=== PATIENT | female | born 1975 | race Asian ===

== ENCOUNTER 2021-05-19 09:29 | Outpatient (REF) | payer BC, SELFPAY ==
[2021-05-19 11:31] LABS: MANUAL DIFF FLAG NO
[2021-05-19 11:42] LABS: Basophils Percent Auto 0.4 % (0-2); Eosinophils Absolute Auto 0.2 X10*3/uL (0.0-0.4); Eosinophils Percent Auto 2.1 % (0-4); Hematocrit 39.4 % (37-47); Hemoglobin 12.9 g/dl (12.0-16.0); Imm Gran Abs Auto 0.01 X10*3/uL (0.00-0.03); Imm Gran Pct Auto 0.1 % (0.0-0.4); Lymphocytes Absolute Auto 2.6 X10*3/uL (1.2-4.9); Lymphocytes Percent Auto 36.2 % (20-40); Mean Corpuscular HGB Conc 32.7 g/dl (31.0-35.0); Mean Corpuscular Hemoglobin 29.2 pg (27.0-33.0); Mean Corpuscular Volume 89.1 fL (80-98); Monocytes Absolute Auto 0.4 X10*3/uL (0.1-1.2); Monocytes Percent Auto 6.1 % (2-11); Neutrophils Percent Auto 55.1 % (45-73); Platelet Count 286 X10*3/uL (160-400); Red Blood Count 4.42 X10*6/uL (4.20-5.50); Red Cell Distribution Width 12.7 % (11.0-16.0); White Blood Count 7.2 X10*3/uL (4.8-10.8)
[2021-05-19 12:25] LABS: Vitamin D 25-OH Total 33.2 ng/mL (>30)
[2021-05-19 12:27] LABS: Alanine Aminotransferase 12 U/L (0-31); Albumin Level 4.1 g/dL (3.5-5.0); Alkaline Phosphatase 56 U/L (39-117); Anion Gap 12 (12-20); Aspartate Amino Transferase 22 U/L (5-31); Bilirubin Total 0.4 mg/dL (0.0-1.0); Blood Urea Nitrogen 6 mg/dL (9-16); Carbon Dioxide 24 mmol/L (22-29); Chloride 107 mmol/L (96-108); Cholesterol 166 mg/dL; Estimated Glomerular Filt Rate > 60; Glucose Fasting 93 mg/dL (60-99); HDL Cholesterol 47 mg/dL; LDL Cholesterol Calculated 96 mg/dl; Sodium 139 mmol/L (135-145); Total Protein 7.2 g/dL (6.5-8.0); Triglycerides 117 mg/dL
== END 2021-05-19 09:30 | disposition home or self-care (01) ==
LOC: HO.HMGCLDS 09:29
PROVIDERS: PCP Internal Medicine; Visit Provider Internal Medicine
DX: E55.9 Vitamin D deficiency, unspecified (principal); K21.9 Gastro-esophageal reflux disease without esophagitis
CPT/HCPCS: 36415; 80053; 80061; 82306; 85025

== ENCOUNTER → 2021-12-06 10:11 | Outpatient (BNVA) | payer BC, SELFPAY | PROVIDERS: PCP Internal Medicine; Visit Provider Surgery ==

== ENCOUNTER 2022-01-23 13:57 | Outpatient (REF) | payer BC, SELFPAY ==
[2022-01-23 16:54] LABS: MANUAL DIFF FLAG NO
[2022-01-23 16:58] LABS: Basophils Percent Auto 0.3 % (0-2); Eosinophils Absolute Auto 0.1 X10*3/uL (0.0-0.4); Eosinophils Percent Auto 0.5 % (0-4); Hematocrit 40.2 % (37.0-47.0); Hemoglobin 13.4 g/dl (12.0-16.0); Imm Gran Abs Auto 0.02 X10*3/uL (0.00-0.03); Imm Gran Pct Auto 0.2 % (0.0-0.4); Lymphocytes Absolute Auto 2.7 X10*3/uL (1.2-4.9); Lymphocytes Percent Auto 29.5 % (20-40); Mean Corpuscular HGB Conc 33.3 g/dl (31.0-35.0); Mean Corpuscular Hemoglobin 29.9 pg (27.0-33.0); Mean Corpuscular Volume 89.7 fL (80.0-98.0); Monocytes Absolute Auto 0.5 X10*3/uL (0.1-1.2); Monocytes Percent Auto 5.4 % (2-11); Neutrophils Absolute Auto 5.8 x10*3/uL (2.0-8.3); Neutrophils Percent Auto 64.1 % (45-73); Platelet Count 318 X10*3/uL (160-400); Red Blood Count 4.48 X10*6/uL (4.20-5.50); Red Cell Distribution Width 12.7 % (11.0-16.0); White Blood Count 9.1 X10*3/uL (4.8-10.8)
[2022-01-23 17:15] LABS: Alanine Aminotransferase 15 U/L (0-31); Albumin Level 4.4 g/dL (3.5-5.0); Alkaline Phosphatase 58 U/L (39-117); Anion Gap 13 (12-20); Aspartate Amino Transferase 23 U/L (5-31); Bilirubin Total 0.3 mg/dL (0.0-1.0); Blood Urea Nitrogen 5 mg/dL (9-16); C Reactive Protein 0.38 mg/dL (< or = 0.50); Calcium 9.6 mg/dL (8.4-10.2); Carbon Dioxide 27 mmol/L (22-29); Chloride 104 mmol/L (96-108); Estimated Glomerular Filt Rate > 60; Glucose Random 109 mg/dL (60-115); Potassium 3.8 mmol/L (3.3-5.1); Sodium 140 mmol/L (135-145); Total Protein 7.8 g/dL (6.5-8.0)
[2022-01-23 17:35] LABS: Thyroid Stimulating Hormone 1.21 uIU/mL (0.32-4.0)
== END 2022-01-23 13:58 | disposition home or self-care (01) ==
LOC: HO.HMGCLDS 13:57
PROVIDERS: Visit Provider Internal Medicine
DX: R53.83 Other fatigue (principal)
CPT/HCPCS: 36415; 80053; 84443; 85025; 86140

== ENCOUNTER 2022-07-06 12:24 | Outpatient (REF) | payer BC, SELFPAY ==
[2022-07-06 14:17] LABS: Appearance Urine Clear; Color Urine Yellow; Glucose Urine UA Negative (Negative); Leukocyte Esterase Urine Negative (Negative); Nitrite Urine Negative (Negative); Specific Gravity - Urine <= 1.005 (1.005-1.025); Urine Blood Negative (Negative); Urine Ketones Negative (Negative); Urine Protein Negative (Neg-Trace)
[2022-07-06 14:22] LABS: Bacteria Urine None Seen (None Seen); Hyaline Casts Urine 0-2 /LPF (0-2); RBC Urine 0-2 /HPF (0-2); Squamous Epithelial Cell Urine 0-2 /HPF (0-2); WBC Urine 0-5 /HPF (0-5)
== END 2022-07-06 12:25 | disposition home or self-care (01) ==
LOC: HO.HMGCLDS 12:24
PROVIDERS: PCP Internal Medicine; Visit Provider Internal Medicine
DX: R30.0 Dysuria (principal)
CPT/HCPCS: 81001; 87086

== ENCOUNTER 2022-10-16 07:50 | Outpatient (REF) | payer BC, SELFPAY ==
[2022-10-16 11:28] LABS: MANUAL DIFF FLAG NO
[2022-10-16 11:35] LABS: Basophils Percent Auto 0.4 % (0-2); Eosinophils Absolute Auto 0.1 X10*3/uL (0.0-0.4); Hematocrit 38.9 % (37.0-47.0); Hemoglobin 12.9 g/dl (12.0-16.0); Imm Gran Abs Auto 0.02 X10*3/uL (0.00-0.03); Imm Gran Pct Auto 0.2 % (0.0-0.4); Lymphocytes Absolute Auto 2.8 X10*3/uL (1.2-4.9); Lymphocytes Percent Auto 33.5 % (20-40); Mean Corpuscular HGB Conc 33.2 g/dl (31.0-35.0); Mean Corpuscular Hemoglobin 29.5 pg (27.0-33.0); Mean Corpuscular Volume 88.8 fL (80.0-98.0); Mean Platelet Volume 10.1 fL (9.4-12.3); Monocytes Absolute Auto 0.5 X10*3/uL (0.1-1.2); Monocytes Percent Auto 5.9 % (2-11); Neutrophils Absolute Auto 4.9 x10*3/uL (2.0-8.3); Platelet Count 305 X10*3/uL (160-400); Red Blood Count 4.38 X10*6/uL (4.20-5.50); Red Cell Distribution Width 12.3 % (11.0-16.0); White Blood Count 8.3 X10*3/uL (4.8-10.8)
[2022-10-16 14:10] LABS: Alanine Aminotransferase 14 U/L (0-31); Albumin Level 4.2 g/dL (3.5-5.0); Alkaline Phosphatase 58 U/L (39-117); Anion Gap 14 (12-20); Aspartate Amino Transferase 21 U/L (5-31); Bilirubin Total 0.5 mg/dL (0.0-1.0); Blood Urea Nitrogen 8 mg/dL (9-16); Calcium 8.9 mg/dL (8.4-10.2); Carbon Dioxide 24 mmol/L (22-29); Chloride 106 mmol/L (96-108); Cholesterol 152 mg/dL; Estimated Glomerular Filt Rate > 60; Glucose Random 93 mg/dL (60-115); HDL Cholesterol 44 mg/dL; LDL Cholesterol Calculated 85 mg/dl; Potassium 4.1 mmol/L (3.3-5.1); Sodium 140 mmol/L (135-145); Thyroid Stimulating Hormone 1.42 uIU/mL (0.32-4.0); Total Protein 7.2 g/dL (6.5-8.0); Triglycerides 115 mg/dL; Vitamin D 25-OH Total 39.6 ng/mL (>30)
== END 2022-10-16 07:51 | disposition home or self-care (01) ==
LOC: HO.HMGCLDS 07:50
PROVIDERS: PCP Internal Medicine; Visit Provider Internal Medicine
DX: Z00.00 Encounter for general adult medical examination without abnormal findings (principal); E55.9 Vitamin D deficiency, unspecified; K21.9 Gastro-esophageal reflux disease without esophagitis
CPT/HCPCS: 36415; 80053; 80061; 82306; 84443; 85025

== ENCOUNTER 2023-09-03 08:01 | Outpatient (REF) | payer BC, SELFPAY ==
[2023-09-03 11:23] LABS: MANUAL DIFF FLAG NO
[2023-09-03 11:30] LABS: Basophils Percent Auto 0.5 % (0-2); Eosinophils Absolute Auto 0.2 X10*3/uL (0.0-0.4); Hemoglobin 12.8 g/dl (12.0-16.0); Imm Gran Abs Auto 0.03 X10*3/uL (0.00-0.03); Imm Gran Pct Auto 0.4 % (0.0-0.4); Lymphocytes Absolute Auto 3.2 X10*3/uL (1.2-4.9); Lymphocytes Percent Auto 40.2 % (20-40); Mean Corpuscular HGB Conc 32.8 g/dl (31.0-35.0); Mean Corpuscular Hemoglobin 29.4 pg (27.0-33.0); Mean Corpuscular Volume 89.7 fL (80.0-98.0); Mean Platelet Volume 10.2 fL (9.4-12.3); Monocytes Absolute Auto 0.5 X10*3/uL (0.1-1.2); Monocytes Percent Auto 6.7 % (2-11); Neutrophils Absolute Auto 3.9 x10*3/uL (2.0-8.3); Neutrophils Percent Auto 50.2 % (45-73); Platelet Count 307 X10*3/uL (160-400); Red Blood Count 4.35 X10*6/uL (4.20-5.50); Red Cell Distribution Width 13.5 % (11.0-16.0); White Blood Count 7.9 X10*3/uL (4.8-10.8)
[2023-09-03 12:03] LABS: Alanine Aminotransferase 18 U/L (0-31); Albumin Level 4.3 g/dL (3.5-5.0); Alkaline Phosphatase 64 U/L (39-117); Anion Gap 13 (12-20); Aspartate Amino Transferase 26 U/L (5-31); Bilirubin Total 0.4 mg/dL (0.0-1.0); Blood Urea Nitrogen 6 mg/dL (9-16); Calcium 9.3 mg/dL (8.4-10.2); Carbon Dioxide 26 mmol/L (22-29); Chloride 104 mmol/L (96-108); Cholesterol 157 mg/dL (<200); Estimated Glomerular Filt Rate > 60; Glucose Fasting 94 mg/dL (60-99); HDL Cholesterol 49 mg/dL (>40); Iron 67 mcg/dL (30-160); LDL Cholesterol Calculated 90 mg/dL (<100); Percent Iron Saturation 21 % (15-50); Sodium 139 mmol/L (135-145); Total Iron Binding Capacity 322 mcg/dL (228-428); Triglycerides 94 mg/dL (<150); Unsaturated Iron Binding 255 ug/dL
[2023-09-03 12:06] LABS: Ferritin 20 ng/mL (10-250); Thyroid Stimulating Hormone 1.36 uIU/mL (0.32-4.0)
[2023-09-03 12:22] LABS: Folate 13.4 ng/mL (> or = 4.0); Vitamin B12 1066 pg/mL (200-900)
== END 2023-09-03 08:02 | disposition home or self-care (01) ==
LOC: HO.HMGCLDS 08:01
PROVIDERS: PCP Internal Medicine; Visit Provider Internal Medicine
DX: E55.9 Vitamin D deficiency, unspecified (principal); K21.9 Gastro-esophageal reflux disease without esophagitis; N92.0 Excessive and frequent menstruation with regular cycle
CPT/HCPCS: 36415; 80053; 80061; 82306; 82607; 82728; 82746; 83540; 84443; 85025

== ENCOUNTER 2023-10-24 11:57 | Outpatient (REF) | payer BC, SELFPAY ==
[2023-10-24 13:35] LABS: MANUAL DIFF FLAG NO
[2023-10-24 13:44] LABS: Basophils Percent Auto 0.4 % (0-2); Eosinophils Absolute Auto 0.1 X10*3/uL (0.0-0.4); Eosinophils Percent Auto 1.5 % (0-4); Hematocrit 39.1 % (37.0-47.0); Hemoglobin 12.8 g/dl (12.0-16.0); Imm Gran Abs Auto 0.02 X10*3/uL (0.00-0.03); Imm Gran Pct Auto 0.2 % (0.0-0.4); Lymphocytes Absolute Auto 3.2 X10*3/uL (1.2-4.9); Lymphocytes Percent Auto 38.6 % (20-40); Mean Corpuscular HGB Conc 32.7 g/dl (31.0-35.0); Mean Corpuscular Hemoglobin 29.5 pg (27.0-33.0); Mean Corpuscular Volume 90.1 fL (80.0-98.0); Mean Platelet Volume 10.2 fL (9.4-12.3); Monocytes Absolute Auto 0.5 X10*3/uL (0.1-1.2); Monocytes Percent Auto 6.2 % (2-11); Neutrophils Absolute Auto 4.4 x10*3/uL (2.0-8.3); Neutrophils Percent Auto 53.1 % (45-73); Platelet Count 267 X10*3/uL (160-400); Red Blood Count 4.34 X10*6/uL (4.20-5.50); Red Cell Distribution Width 12.8 % (11.0-16.0); White Blood Count 8.2 X10*3/uL (4.8-10.8)
[2023-10-24 14:26] LABS: Iron 68 mcg/dL (30-160); Percent Iron Saturation 23 % (15-50); Total Iron Binding Capacity 300 mcg/dL (228-428); Unsaturated Iron Binding 232 ug/dL
[2023-10-24 14:28] LABS: Ferritin 22 ng/mL (10-250)
== END 2023-10-24 11:58 | disposition home or self-care (01) ==
LOC: HO.HMGCLDS 11:57
PROVIDERS: PCP Internal Medicine; Visit Provider Internal Medicine
DX: N92.1 Excessive and frequent menstruation with irregular cycle (principal)
CPT/HCPCS: 36415; 82728; 83540; 85025

== ENCOUNTER 2024-04-24 07:54 | Outpatient (REF) | payer BC, SELFPAY ==
[2024-04-24 11:19] LABS: MANUAL DIFF FLAG NO
[2024-04-24 11:22] LABS: Basophils Percent Auto 0.6 % (0-2); Eosinophils Absolute Auto 0.2 X10*3/uL (0.0-0.4); Eosinophils Percent Auto 2.4 % (0-4); Hematocrit 40.5 % (37.0-47.0); Hemoglobin 13.5 g/dl (12.0-16.0); Imm Gran Abs Auto 0.02 X10*3/uL (0.00-0.03); Imm Gran Pct Auto 0.3 % (0.0-0.4); Lymphocytes Percent Auto 42.1 % (20-40); Mean Corpuscular HGB Conc 33.3 g/dl (31.0-35.0); Mean Platelet Volume 9.9 fL (9.4-12.3); Monocytes Absolute Auto 0.5 X10*3/uL (0.1-1.2); Monocytes Percent Auto 6.9 % (2-11); Neutrophils Absolute Auto 3.5 x10*3/uL (2.0-8.3); Neutrophils Percent Auto 47.7 % (45-73); Platelet Count 274 X10*3/uL (160-400); Red Cell Distribution Width 12.6 % (11.0-16.0); White Blood Count 7.2 X10*3/uL (4.8-10.8)
[2024-04-24 11:45] LABS: Alanine Aminotransferase 27 U/L (0-31); Albumin Level 4.3 g/dL (3.5-5.0); Alkaline Phosphatase 63 U/L (39-117); Anion Gap 11 (12-20); Aspartate Amino Transferase 31 U/L (5-31); Bilirubin Total 0.5 mg/dL (0.0-1.0); Blood Urea Nitrogen 9 mg/dL (9-16); Calcium 9.5 mg/dL (8.4-10.2); Carbon Dioxide 28 mmol/L (22-29); Chloride 106 mmol/L (96-108); Cholesterol 163 mg/dL (<200); Estimated Glomerular Filt Rate > 60; Glucose Fasting 88 mg/dL (60-99); HDL Cholesterol 59 mg/dL (>40); Iron 102 mcg/dL (30-160); LDL Cholesterol Calculated 91 mg/dL (<100); Percent Iron Saturation 34 % (15-50); Potassium 3.9 mmol/L (3.3-5.1); Sodium 141 mmol/L (135-145); Total Iron Binding Capacity 302 mcg/dL (228-428); Total Protein 7.9 g/dL (6.5-8.0); Triglycerides 68 mg/dL (<150); Unsaturated Iron Binding 200 ug/dL
[2024-04-24 12:04] LABS: Ferritin 46 ng/mL (10-250); Thyroid Stimulating Hormone 1.79 uIU/mL (0.32-4.0); Vitamin D 25-OH Total 57.1 ng/mL (>30)
[2024-04-24 12:05] LABS: Folate 14.4 ng/mL (> or = 4.0); Vitamin B12 761 pg/mL (200-900)
== END 2024-04-24 07:55 | disposition home or self-care (01) ==
LOC: HO.HMGCLDS 07:54
PROVIDERS: PCP Internal Medicine; Visit Provider Internal Medicine
DX: E55.9 Vitamin D deficiency, unspecified (principal); K21.9 Gastro-esophageal reflux disease without esophagitis; N92.1 Excessive and frequent menstruation with irregular cycle
CPT/HCPCS: 36415; 80053; 80061; 82306; 82607; 82728; 82746; 83540; 84443; 85025

== ENCOUNTER 2024-10-12 09:48 | Outpatient (REF) | payer BC, SELFPAY ==
--- OUTSIDE RECORDS SUMMARY | 2024-10-12 09:52 | XMS_ITS | Patient Health Record ---
Author Organization [facility] Address [address] [place] [address] Care Team Providers Care Supervisor Electronics Assembly Name Role Phone Alexandre Salmeron DO Primary Care Provider Unavail able Alexandre Barrera Unavailable [phone] REASON FOR REFERRAL Referring Provider First Name Alexandre Referring Provider Last Name Freddy Referring Provider Speciality Internal M edicine Referred Organization [facility] Referred Provider Alexandre Barrera Referred Address [address] [facility] [address],[place], [place],[address], Referred Provider Specialty Gastroentero logy General Notes Kerrie Hernandez 024 03:54:35 PM EST > REQUESTED AN HMO BLUE REFERRAL FROM DR SALMERON'S OFFICE FOR VISIT WITH DR BARRERA ON [phone] Referral Priority Routine SOCIAL HISTORY Sex Assigned At : Social History Observation Description Sex Assigned At Unknown Encounters Encounter Location Date Provider Diagnosis [facility] [address] [place] [address] 01/15/2024 Alexandre Barrera [facility] [address] [place] [address] 01/13/2024 Alexandre Barrera PLAN OF TREATMENT No Information Insurance Providers Payer Name Payer Address Payer Phone Subscriber Number Group Number Insured Name Patient Relationship to Insured Coverage Start Date Coverage End Date HMO BLUE BCBS PROFESSIONAL CLAIMS [address] [place] [address] [phone] [id number] [id number] ABEBE Self - patient is the insured
--- OUTSIDE RECORDS SUMMARY | 2024-10-12 09:52 | XMS_ITS ---
Author Organization [facility] Address [address] [place] [address] Care Team Providers Care Worship Pastor Name Role Phone Alexandre Hayes DO Primary Care Provider Unavail able Alexandre Arambula Unavailable [phone] REASON FOR VISIT cancel OV Encounters Encounter Location Date Provider Diagnosis [facility] [address] [place] [address] 01/13/2024 Alexandre Arambula PLAN OF TREATMENT No Information
--- OUTSIDE RECORDS SUMMARY | 2024-10-12 09:52 | XMS_ITS ---
Author Organization Alexandre Hayes DO [facility] Address [address] [place], [place] [id number] Care Team Providers Care Vtc Technician Name Role Phone Freddy, Alexandre Primary Care Provider REASON FOR VISIT Message Encounters Encounter Location Date Provider Diagnosis Alexandre Hayes DO, [address] [id number] 09/30/2024 Alexandre Hayes Malodorous urine R82.90 ASSESSMENTS Encounter Date Diagnosis Assessment Notes Treatment Notes Treatment Clinical Notes 09/30/2024 Malodorous urine (ICD-10 - R82.90) PLAN OF TREATMENT Pending Test Test Name Order Date Urinalysis and Microscopic 09/30/2024 Urine Culture 09/30/2024 Next Appt Details Provider Name:Alexandre stevens, 10/13/2024 01:45:00 PM, [address] [place] [address], [phone], Provider Name:Alexandre stevens, 11/03/2024 09:00:00 AM, [address] [place] [address], [phone],
--- OUTSIDE RECORDS SUMMARY | 2024-10-12 09:52 | XMS_ITS ---
Author Organization [facility] Address [address] [place] [address] Care Team Providers Care Antenna Specialist Name Role Phone Alexandre Hayes DO Primary Care Provider Unavail able Alexandre Arambula Unavailable [phone] REASON FOR VISIT Patient presents today for a COLON SCREENING Encounters Encounter Location Date Provider Diagnosis [facility] [address] [place] [address] 01/15/2024 Alexandre Arambula PLAN OF TREATMENT No Information
--- OUTSIDE RECORDS SUMMARY | 2024-10-12 09:52 | XMS_ITS ---
Author Organization Alexandre Hayes DO [facility] Address [address] [place] [phone] Care Team Providers Care Scraper Meat Name Role Phone Alexandre Hayes Primary Care Provider REASON FOR VISIT Needs call back from office PROBLEMS Problem Type ICD Code Onset Dates Problem Status W/U Status Risk SNOMED Code Notes Problem Chronic fatigue (R53.82) Active confirmed 30711539 Encounters Encounter Location Date Provider Diagnosis Alexandre Hayes DO, [address] [id number] 07/24/2024 Alexandre Freddy Chronic fatigue R53.82 ASSESSMENTS Encounter Date Diagnosis Assessment Notes Treatment Notes Treatment Clinical Notes 07/24/2024 Chronic fatigue (ICD-10 - R53.82) PLAN OF TREATMENT Pending Test Test Name Order Date Sedimentation Rate-Westergren 07/24/2024 CBC w DIFF 07/24/2024 PROFILE, RANDOM 07/24/2024 TSH (THYROID STIMULATING HORMONE) 2023 Urinalysis and Microscopic 07/24/2024 C Reactive Protein 07/24/2024 Next Appt Details Provider Name:Alexandre Carrasquillo Miriam stevens, 10/13/2024 01:45:00 PM, [address] [place] [address], [phone], Provider Name:Alexandre Pineda hilda, 11/03/2024 09:00:00 AM, [address] [place] [address], [phone],
--- OUTSIDE RECORDS SUMMARY | 2024-10-12 09:52 | XMS_ITS ---
Author Organization Alexandre Hayes DO, [facility] Address [address] [place] [phone] Care Team Providers Care Cognos Consultant Name Role Phone Alexandre Hayes Primary Care Provider REASON FOR VISIT Message Encounters Encounter Location Date Provider Diagnosis Alexandre Hayes DO, FACP [address] [place] [phone] 08/17/2024 Alexandre Hayes PLAN OF TREATMENT Next Appt Details Provider Name:Alexandre stevens, 10/13/2024 01:45:00 PM, [address] [place] [address], [phone], Provider Name:Alexandre stevens, 11/03/2024 09:00:00 AM, [address] [place] [address], [phone],
--- OUTSIDE RECORDS SUMMARY | 2024-10-12 09:53 | XMS_ITS | Patient Health Record ---
Author Organization Alexandre Hayes DO, FACP Address [address] [place], [place] [phone] Care Team Providers Care Metal Window Screen Assembler Name Role Phone Alexandre Hayes Primary Care Provider ALLERGIES Allergen (clinical drug ingredient) Drug/Non Drug Allergy documented on EMR Reaction Allergy Type Onset Date Status amoxicillin Amoxicillin rash Drug Allergy Act loree RESULTS Component Value Reference Range Notes Complete Blood Count Auto Di ff Reviewed date:10/24/2023 02:57:37 PM Interpretation:Normal Performing Lab:[facility], [address] [place] [phone] Notes/Report: White Blood Count 8.2 4.8-10.8 X10*3/uL Red Blood Count 4.34 4.20-5.50 X10*6/uL Hemoglobin 12.8 12.0-16.0 g/dl Hematocrit 39.1 37.0-47.0 % Mean Corpuscular Volume 90.1 80.0-98.0 fL Mean Corpuscular Hemoglobin 29.5 27.0-33.0 pg Mean Corpuscular HGB Conc 32.7 31.0-35.0 g/dl Red Cell Distribution Width 12.8 11.0-16.0 % Platelet Count 267 160-400 X10*3/uL Mean Platelet Volume 10.2 9.4-12.3 fL Neutrophils Percent Auto 53.1 45-73 % Imm Gran Pct Auto 0.2 0.0-0.4 % Lymphocytes Percent Auto 38.6 20-40 % Monocytes Percent Auto 6.2 2-11 % Eosinophils Percent Auto 1.5 0-4 % Basophils Percent Auto 0.4 0-2 % NRBC Pct Auto 0.0 0.0-0.2 /100WBC Neutrophils Absolute Auto 4.4 2.0-8.3 x10*3/u L Imm Gran Abs Auto 0.02 0.00-0.03 X10*3/uL Lymphocytes Absolute Auto 3.2 1.2-4.9 X10*3/u L Monocytes Absolute Auto 0.5 0.1-1.2 X10*3/uL Eosinophils Absolute Auto 0.1 0.0-0.4 X10*3/u L Basophils Absolute Auto 0.0 0.0-0.2 X10*3/uL NRBC Abs Auto 0.000 0.0-0.012 X10*3/uL IRON PROFILE Reviewed date:10/24/2023 02:57:37 PM Interpretation:Normal Performing Lab:[facility], [address] [place] [phone] Notes/Report: Iron 68 30-160 mcg/dL Total Iron Binding Capacity 300 228-428 mcg/d L Percent Iron Saturation 23 15-50 % Unsaturated Iron Binding 232 Ferritin Reviewed date:10/24/2023 02:57:51 PM Interpretation:Normal Performing Lab:[facility], [address] [place] [phone] Notes/Report: Ferritin 22 10-250 ng/mL Complete Blood Count Auto Di ff Reviewed date:04/24/2024 12:49:33 PM Interpretation:Normal Performing Lab:[facility], [address] [place] [phone] Notes/Report: White Blood Count 7.2 4.8-10.8 X10*3/uL Red Blood Count 4.50 4.20-5.50 X10*6/uL Hemoglobin 13.5 12.0-16.0 g/dl Hematocrit 40.5 37.0-47.0 % Mean Corpuscular Volume 90.0 80.0-98.0 fL Mean Corpuscular Hemoglobin 30.0 27.0-33.0 pg Mean Corpuscular HGB Conc 33.3 31.0-35.0 g/dl Red Cell Distribution Width 12.6 11.0-16.0 % Platelet Count 274 160-400 X10*3/uL Mean Platelet Volume 9.9 9.4-12.3 fL Neutrophils Percent Auto 47.7 45-73 % Imm Gran Pct Auto 0.3 0.0-0.4 % Lymphocytes Percent Auto 42.1 20-40 % Monocytes Percent Auto 6.9 2-11 % Eosinophils Percent Auto 2.4 0-4 % Basophils Percent Auto 0.6 0-2 % NRBC Pct Auto 0.0 0.0-0.2 /100WBC Neutrophils Absolute Auto 3.5 2.0-8.3 x10*3/u L Imm Gran Abs Auto 0.02 0.00-0.03 X10*3/uL Lymphocytes Absolute Auto 3.0 1.2-4.9 X10*3/u L Monocytes Absolute Auto 0.5 0.1-1.2 X10*3/uL Eosinophils Absolute Auto 0.2 0.0-0.4 X10*3/u L Basophils Absolute Auto 0.0 0.0-0.2 X10*3/uL NRBC Abs Auto 0.000 0.0-0.012 X10*3/uL Comprehensive [place]. Panel Fa st Reviewed date:04/24/2024 12:49:33 PM Interpretation:Normal Performing Lab:[facility], [address] [place] [phone] Notes/Report: Sodium 141 135-145 mmol/L Potassium 3.9 3.3-5.1 mmol/L Chloride 106 96-108 mmol/L Carbon Dioxide 28 22-29 mmol/L Anion Gap 11 12-20 Blood Urea Nitrogen 9 9-16 mg/dL Creatinine 0.68 0.5-1.4 mg/dL Estimated Glomerular Filt Rate > 60 NOTE: For -[place] individuals, multiply the result by 1.210. Chronic Kidney Disease: Estimated GFR < 60 mL/min/1.73m2 Severe Kidney Disease: Estimated GFR < 15 mL/min/1.73m2 Glucose Fasting 88 60-99 mg/dL Calcium 9.5 8.4-10.2 mg/dL Bilirubin Total 0.5 0.0-1.0 mg/dL Aspartate Amino Transferase 31 5-31 U/L Alanine Aminotransferase 27 0-31 U/L Total Protein 7.9 6.5-8.0 g/dL Albumin Level 4.3 3.5-5.0 g/dL Alkaline Phosphatase 63 39-117 U/L IRON PROFILE Reviewed date:04/24/2024 12:49:33 PM Interpretation:Normal Performing Lab:[facility], [address] [place] [phone] Notes/Report: Iron 102 30-160 mcg/dL Total Iron Binding Capacity 302 228-428 mcg/d L Percent Iron Saturation 34 15-50 % Unsaturated Iron Binding 200 Ferritin Reviewed date:04/24/2024 12:49:33 PM Interpretation:Normal Performing Lab:[facility], [address] [place] [phone] Notes/Report: Ferritin 46 10-250 ng/mL Lipid Panel Reviewed date:04/24/2024 12:49:33 PM Interpretation:Normal Performing Lab:[facility], [address] [place] [phone] Notes/Report: Triglycerides 68 <150 mg/dL Desirable Triglyceride: less than 150 mg/dL Borderline High Triglyceride 150-199 mg/dL High Triglyceride: 200-499 mg/dL Very High Triglyceride: greater than or equal to 5OO mg/dL Cholesterol 163 <200 mg/dL Desirable Cholesterol: less than 200 mg/dL Borderline High Cholesterol: 200-239 mg/dL High Cholesterol: greater than 239 mg/dL LDL Cholesterol Calculated 91 <100 mg/dL Desirable LDL: less than 100 mg/dL Near Optimal/Above Optimal LDL: 110-129 mg/dL Borderline High LDL: 130-159 mg/dL High LDL: 160-189 mg/dL Very High LDL: greater than or equal to 190 mg/dL HDL Cholesterol 59 >40 mg/dL Desirable HDL: greater than 40 mg/dL Note: This HDL assay may give artificially low results in patients with liver disease. Vitamin B12 and Folate Reviewed date:04/24/2024 12:49:48 PM Interpretation:Normal Performing Lab:[facility], [address] [place] [phone] Notes/Report: Vitamin B12 761 200-900 pg/mL NORMAL 200-900 PG/ML INDETERMINATE 160-199 PG/ML DEFICIENT < 160 PG/ML Folate 14.4 > or = 4.0 ng/mL Reference Values: > or = 4.0 ng/mL < 4.0 ng/mL suggests folate deficiency Methotrexate, aminopterin and folinic acid (leucovorin) are chemotherapeutic agents whose molecular structures are similar to folate; therefore, the Binder Fixer folate assay cannot be used for patients using these drugs. Vitamin D 25-OH Total Reviewed date:04/24/2024 12:49:33 PM Interpretation:Normal Performing Lab:[facility], [address] [place] [phone] Notes/Report: Vitamin D 25-OH Total 57.1 >30 ng/mL Health Based Reference Values* < 20 ng/mL Deficient 20-30 ng/mL Insufficient > 30 ng/mL Sufficient *Tricia DEUTSCH. N Engl J Med. 2007;357:266-280 Care must be taken in interpreting Vitamin D results from different laboratories and methodologies. Published data demonstrated that results from patients undergoing hemodialysis may show a negative bias when tested with various automated 25-OH vitamin D assays when compared to LC-MS/MS. When testing samples from patients whose predominant form of Vitamin D is Vitamin D2, such as patients receiving Vitamin D2 supplementation, results that are subtherapeutic should be confirmed with another method such as LC-MS/MS. Thyroid Stimulating Hormone Reviewed date:04/24/2024 12:49:33 PM Interpretation:Normal Performing Lab:[facility], [address] [place] [phone] Notes/Report: Thyroid Stimulating Hormone 1.79 0.32-4.0 uIU/ mL TSH 3rd Generation ([facility]) MAMMOGRAM, SCREENING Reviewed date:05/05/2024 02:57:36 PM Interpretation:Benign Performing Lab: Notes/Report: Benign REASON FOR REFERRAL Reason colon cancer screeni ng Diagnosis 1 Colon cancer screeni ng (Z12.11) Referral Organization Alexandre Nicole, FACBrennan Referring Provider First Name Alexandre Referring Provider Last Name Freddy Referring Provider Speciality Internal M edicine Referred Provider Evans Engel Referred Provider Specialty Gastroentero logy General Notes Brittnee Torres 4 12:00:03 PM EST > Referral and notes faxed prior to scheduling to [phone]. Referral Priority Routine MEDICATIONS Medication SIG (Take, Route, Frequency, Duration) Notes Start Date End Date Status Krill Oil [place]-3 500 MG 1 capsule Orall y Once every other day Active Multivitamin - 1 tablet Orally Once a day Active Vitamin D (Cholecalciferol) 25 MCG (1000 UT) 1 capsule Orally Once a day Active IMMUNIZATIONS Vaccine Route Administration Date Status Comme nts H1N1 Unknown 11/03/2009 Administered Influenza Unknown 07/28/2010 Administered Influenza IM Intramuscular 08/03/2014 Administered Influenza Quad IM Intramuscular 08/01/2015 Administered Influenza Quad IM Intramuscular 08/03/2016 Administered Influenza Quad IM Intramuscular 08/20/2017 Administered Influenza Quad IM Intramuscular 08/12/2018 Administered Influenza Quad IM Intramuscular 08/19/2019 Administered Influenza Quad Unknown 08/10/2020 Administered COVID-19 Pfizer BioNTech Unknown 09/24/2021 Administere d Influenza Quad Unknown 08/16/2021 Administered COVID-19 Pfizer BioNTech Unknown 02/22/2021 Administere d COVID-19 Pfizer BioNTech Unknown 02/01/2021 Administere d Influenza Quad Unknown 08/01/2022 Administered Influenza Quad Unknown 08/01/2023 Administered SOCIAL HISTORY Tobacco Use: Social History Observation Description Date Details (start date - stop date) Never Smoker NA - NA Sex Assigned At : Social History Observation Description Sex Assigned At Unknown Tobacco Use/Smoking Question Answer Notes Patient is a nonsmoker Additional Findings: Tobacco Non-User Cu rrent non-smoker, currently using no form of tobacco Alcohol Screen Question Answer Notes Did you have a drink containing alcohol in the p ast year? No Points 0 Interpretation Negative PROBLEMS Problem Type ICD Code Onset Dates Problem Status W/U Status Risk SNOMED Code Notes Problem Vitamin D deficiency (E55.9) Active confirmed 65058672 Problem Anxiety (F41.9) Active confirmed 290076 02 Problem Chronic fatigue (R53.82) Active confirmed 85275616 Problem Cervical strain, initial encounter (S16.1XXA) Active confirmed 559852795 Problem Vertigo (R42) Active confirmed 11552897 1 Problem Fibrocystic breast disease, right (N60.11) Active confirmed 46401282 Problem Blurred vision (H53.8) Active confirmed 465752090 Problem Eustachian tube dysfunction, bilateral (H69.83) Active confirmed 37994124 Problem Gastroesophageal reflux disease, unspecified whether esophagitis present (K21.9) Active confirmed 429803813 Problem Menometrorrhagia (N92.1) Active confirmed 343441943 VITAL SIGNS Blood pressure diastolic 64 mm Hg 04/29/2024 Height 59.00 in 04/29/2024 Blood pressure systolic 112 mm Hg 04/29/2024 Weight 139 lbs 04/29/2024 BMI 28.07 kg/m2 04/29/2024 Encounters Encounter Location Date Provider Diagnosis Alexandre Hayes DO, [address] [id number] 10/23/2023 Alexandre Hayes DO, [address] [id number] 10/30/2023 Alexandre Hayes Encounter for genera l adult medical examination without abnormal findings Z00.00 ; Vitamin D deficiency E55.9 and Menometrorrhagia N92.1 Alexandre Hayes DO, [address] [id number] 04/29/2024 Alexandre Hayes Vitamin D deficiency E55.9 Alexandre Hayes DO, [address] [id number] 03/18/2024 Alexandre Hayes Vitamin D deficiency E55.9 ; Gastroesophageal reflux disease, unspecified whether esophagitis present K21.9 and Menometrorrhagia N92.1 Alexandre Hayes DO, [address] [id number] 06/08/2024 Alexandre Hayes DO, [address] [id number] 07/24/2024 Alexandre Hayes Chronic fatigue R53. 82 Alexandre Hayes DO, [address] [id number] 08/17/2024 Alexandre Hayes DO, [address] [id number] 09/30/2024 Alexandre Hayes Malodorous urine R82 .90 ASSESSMENTS Encounter Date Diagnosis Assessment Notes Treatment Notes Treatment Clinical Notes 10/30/2023 Vitamin D deficiency (ICD-10 - E55.9) 10/30/2023 Encounter for genera l adult medical examination without abnormal findings (ICD-10 - Z00.00) sees Dermatology 04/29/2024 Vitamin D deficiency (ICD-10 - E55.9) 03/18/2024 Vitamin D deficiency (ICD-10 - E55.9) 03/18/2024 Gastroesophageal reflux disease, unspecified whether esophagitis present (ICD-10 - K21.9) 07/24/2024 Chronic fatigue (ICD-10 - R53.82) 09/30/2024 Malodorous urine (ICD-10 - R82.90) 10/30/2023 Menometrorrhagia (ICD-10 - N92.1) 03/18/2024 Menometrorrhagia (ICD-10 - N92.1) PLAN OF TREATMENT Pending Test Test Name Order Date Sedimentation Rate-Westergren 07/24/2024 CBC w DIFF 07/24/2024 PROFILE, RANDOM 07/24/2024 TSH (THYROID STIMULATING HORMONE) 2023 COLOGUARD 07/02/2023 Urinalysis and Microscopic 07/24/2024 Urinalysis and Microscopic 09/30/2024 C Reactive Protein 07/24/2024 Urine Culture 09/30/2024 Next Appt Details Provider Name:Alexandre Pineda hilda, 10/13/2024 01:45:00 PM, [address] [place] [address], [phone], Provider Name:Alexandre Pineda hilda, 11/03/2024 09:00:00 AM, [address] [place] [address], [phone], Insurance Providers Payer Name Payer Address Payer Phone Subscriber Number Group Number Insured Name Patient Relationship to Insured Coverage Start Date Coverage End Date [facility] [address] [place], [place] [id number] [phone] [id number] Hector Unger Self - patient is the insured MEDICAL (GENERAL) HISTORY Medical History History ICD Code Vitamin D deficiency 268.9 Onychomycosis 110.1 seasonal allergies External hemorrhoid Abnormal mammogram fibrocystic breast disease Anxiety F41.9 Heartburn R12 Gastroesophageal reflux disease, unspeci fied whether esophagitis present K21.9 Surgical History Surgery Date(Month/Year) breast biopsy, right, fibroadenoma 11/16 16
[2024-10-12 13:21] LABS: Appearance Urine Clear; Color Urine Yellow; Glucose Urine UA Negative (Negative); Leukocyte Esterase Urine Negative (Negative); Nitrite Urine Negative (Negative); PH 7.5 (5.0-9.0); Specific Gravity - Urine <= 1.005 (1.005-1.025); Urine Blood Negative (Negative); Urine Ketones Negative (Negative); Urine Protein Negative (Neg-Trace)
[2024-10-12 13:26] LABS: Bacteria Urine None Seen (None Seen); Hyaline Casts Urine 0-2 /LPF (0-2); RBC Urine 0-2 /HPF (0-2); Squamous Epithelial Cell Urine 0-2 /HPF (0-2); WBC Urine 0-5 /HPF (0-5)
[2024-10-12 13:34] LABS: MANUAL DIFF FLAG NO
[2024-10-12 13:46] LABS: Basophils Percent Auto 0.5 % (0-2); Eosinophils Absolute Auto 0.1 X10*3/uL (0.0-0.4); Eosinophils Percent Auto 1.8 % (0-4); Hematocrit 37.1 % (37.0-47.0); Hemoglobin 12.6 g/dl (12.0-16.0); Imm Gran Abs Auto 0.01 X10*3/uL (0.00-0.03); Imm Gran Pct Auto 0.1 % (0.0-0.4); Lymphocytes Absolute Auto 3.4 X10*3/uL (1.2-4.9); Lymphocytes Percent Auto 43.2 % (20-40); Mean Corpuscular Hemoglobin 30.1 pg (27.0-33.0); Mean Corpuscular Volume 88.8 fL (80.0-98.0); Monocytes Absolute Auto 0.5 X10*3/uL (0.1-1.2); Monocytes Percent Auto 6.5 % (2-11); Neutrophils Absolute Auto 3.8 x10*3/uL (2.0-8.3); Neutrophils Percent Auto 47.9 % (45-73); Platelet Count 267 X10*3/uL (160-400); Red Blood Count 4.18 X10*6/uL (4.20-5.50); Red Cell Distribution Width 12.7 % (11.0-16.0); White Blood Count 7.9 X10*3/uL (4.8-10.8)
[2024-10-12 14:17] LABS: Alanine Aminotransferase 27 U/L (0-31); Albumin Level 4.2 g/dL (3.5-5.0); Alkaline Phosphatase 64 U/L (39-117); Anion Gap 11 (12-20); Aspartate Amino Transferase 31 U/L (5-31); Bilirubin Total 0.4 mg/dL (0.0-1.0); Blood Urea Nitrogen 8 mg/dL (9-16); C Reactive Protein 0.34 mg/dL (< or = 0.50); Calcium 9.2 mg/dL (8.4-10.2); Carbon Dioxide 29 mmol/L (22-29); Chloride 104 mmol/L (96-108); Estimated Glomerular Filt Rate > 60; Glucose Random 87 mg/dL (60-115); Potassium 3.9 mmol/L (3.3-5.1); Sodium 140 mmol/L (135-145); Total Protein 7.7 g/dL (6.5-8.0)
[2024-10-12 14:30] LABS: Erythrocyte Sedimentation Rate 26 MM/HR (0-20)
[2024-10-12 14:36] LABS: Thyroid Stimulating Hormone 1.45 uIU/mL (0.32-4.0)
== END 2024-10-12 09:49 | disposition home or self-care (01) ==
LOC: HO.HMGCLDS 09:48
PROVIDERS: PCP Internal Medicine; Visit Provider Internal Medicine
DX: R53.82 Chronic fatigue, unspecified (principal)
CPT/HCPCS: 36415; 80053; 81001; 84443; 85025; 85652; 86140; 87086; 87147

== ENCOUNTER 2024-11-02 09:14 | Outpatient (REF) | payer BC, SELFPAY ==
--- OUTSIDE RECORDS SUMMARY | 2024-11-02 09:36 | XMS_ITS ---
Author Organization Alexandre Hayes DO, FACP Address [address] [place], [place] [id number] Care Team Providers Care Change Number Operator Name Role Phone Alexandre Hayes Primary Care Provider ALLERGIES Allergen (clinical drug ingredient) Drug/Non Drug Allergy documented on EMR Reaction Allergy Type Onset Date Status amoxicillin Amoxicillin rash Drug Allergy Act loree REASON FOR REFERRAL Reason Palpitations Diagnosis 1 Palpitations (R00.2) Referral Organization Alexandre Mitchell O, FACP Referring Provider First Name Alexandre Referring Provider Last Name Freddy Referring Provider Speciality Internal M edicine Referred Provider Johnathan Pulido Referred Provider Specialty Cardiovascul ar Disease General Notes Angela Baum 024 10:05:52 AM EST > referral faxed; specialist's office will contact patient; patient aware. Referral Priority Routine REASON FOR VISIT Follow up Vitamin D deficiency MEDICATIONS Medication SIG (Take, Route, Frequency, Duration) Notes Start Date End Date Status Vitamin D (Cholecalciferol) 25 MCG (1000 UT) 1 capsule Orally Once a day Active Krill Oil [place]-3 500 MG 1 capsule Orall y Once every other day Active Multivitamin - 1 tablet Orally Once a day Active SOCIAL HISTORY Tobacco Use: Social History Observation [...] ast year? No Points 0 Interpretation Negative VITAL SIGNS BMI 28.07 kg/m2 10/13/2024 Blood pressure systolic 102 mm Hg 10/13/20 24 Blood pressure diastolic 60 mm Hg 024 Height 59.00 in 10/13/2024 Weight 139 lbs 10/13/2024 Encounters Encounter Location Date Provider Diagnosis Alexandre Hayes DO, [address] [id number] 10/13/2024 Alexandre Hayes Palpitations R00.2 and Vitamin D deficiency E55.9 ASSESSMENTS Encounter Date Diagnosis Assessment Notes Treatment Notes Treatment Clinical Notes 10/13/2024 Palpitations (ICD-10 - R00.2) 10/13/2024 Vitamin D deficiency (ICD-10 - E55.9) PLAN OF TREATMENT Medication Medication Name Sig Start Date Stop Date Notes Vitamin D (Cholecalciferol) 25 MCG (1000 UT) 1 capsule Orally Once a day Krill Oil [place]-3 500 MG 1 capsule Orall y Once every other day Multivitamin - 1 tablet Orally Once a day Pending Test Test Name Order Date CBC w DIFF 10/13/2024 IRON PROFILE 10/13/2024 Ferritin 10/13/2024 Referrals Referral Date Details Palpdeena, Johnathan Pulido Next Appt Details Follow Up: 4 Weeks, Reason: H&P,review lab work Progress Notes * Examination Category Sub-Category Detail Notes General Examination GENERAL APPEARANCE: in no ac [place] distress, well developed, well nourished HEAD: normocephalic, atrau matic HEART: no murmurs, regular rate and rhythm, S1, S2 normal LUNGS: clear to auscultatio n bilaterally ABDOMEN: normal, bowel sounds present, soft, nontender, nondistended SKIN: warm and dry EXTREMITIES: no edema PSYCH: alert, oriented, cog nitive function intact Consultation Request Notes Referral Date Referring Provider Referred Provider Not es 10/13/2024 Alexandre Hayes Khawar Palpitati ons
--- OUTSIDE RECORDS SUMMARY | 2024-11-02 09:36 | XMS_ITS ---
Author Organization Alexandre Hayes DO [facility] Address [address] [place], [place] [id number] Care Team Providers Care Painter Sign Maintenance Name Role Phone Alexandre Hayes Primary Care Provider REASON FOR VISIT Message Encounters Encounter Location Date Provider Diagnosis Alexandre Hayes DO, [address] [id number] 09/30/2024 Alexandre Hayes Malodorous urine R82.90 ASSESSMENTS Encounter Date Diagnosis Assessment Notes Treatment Notes Treatment Clinical Notes 09/30/2024 Malodorous urine (ICD-10 - R82.90) PLAN OF TREATMENT No Information
--- OUTSIDE RECORDS SUMMARY | 2024-11-02 09:36 | XMS_ITS ---
Author Organization Alexandre Hayes DO, FACP Address [address] [place], [place] [id number] Care Team Providers Care Audiovisual Tech Name Role Phone Alexandre Hayes Primary Care Provider [phone] REASON FOR VISIT Message Encounters Encounter Location Date Provider Diagnosis Alexandre Hayes DO, FACP [address] [place] [phone] 08/17/2024 Alexandre Hayes PLAN OF TREATMENT No Information
--- OUTSIDE RECORDS SUMMARY | 2024-11-02 09:37 | XMS_ITS | Patient Health Record ---
Author Organization Alexandre Hayes DO, FACP Address [address], [place] [id number] Care Team Providers Care Automatic Spreader Operator Name Role Phone Alexandre Hayes Primary Care Provider ALLERGIES Allergen (clinical drug ingredient) Drug/Non Drug Allergy documented on EMR Reaction Allergy Type Onset Date Status amoxicillin Amoxicillin rash Drug Allergy Act loree RESULTS Component Value Reference Range Notes Complete Blood Count Auto Di ff Reviewed date:04/24/2024 12:49:33 PM Interpretation:Normal Performing Lab:[facility], [address] [place] [phone] Notes/Report: White Blood Count 7.2 4.8-10.8 X10*3/uL [...] 0.0-0.2 /100WBC Neutrophils Absolute Auto 3.5 2.0-8.3 x10*3/uL Imm Gran Abs Auto 0.02 0.00-0.03 X10*3/uL Lymphocytes Absolute Auto 3.0 1.2-4.9 X10*3/uL Monocytes Absolute Auto 0.5 0.1-1.2 X10*3/uL Eosinophils Absolute Auto 0.2 0.0-0.4 X10*3/uL Basophils Absolute Auto 0.0 0.0-0.2 X10*3/uL NRBC Abs Auto 0.000 0.0-0.012 X10*3/uL Comprehensive Albin. Panel Fa st Reviewed date:04/24/2024 12:49:33 PM Interpretation:Normal Performing Lab:[facility], [address] [place] [phone] Notes/Report: Sodium 141 135-145 mmol/L Potassium 3.9 3.3-5.1 mmol/L Chloride 106 96-108 mmol/L Carbon Dioxide 28 22-29 mmol/L Anion Gap 11 12-20 Blood Urea Nitrogen 9 9-16 mg/dL Creatinine 0.68 0.5-1.4 mg/dL Estimated Glomerular Filt Rate > 60 NOTE: For -Turkish individuals, multiply the result by 1.210. Chronic [...] PROFILE Reviewed date:04/24/2024 12:49:33 PM Interpretation:Normal Performing Lab:[facility], [address] [place] [phone] Notes/Report: Iron 102 30-160 mcg/dL Total Iron Binding Capacity 302 228-428 mcg/dL Percent Iron Saturation 34 15-50 % Unsaturated Iron Binding 200 Ferritin Reviewed date:04/24/2024 12:49:33 PM Interpretation:Normal Performing Lab:[address] [phone] Notes/Report: Ferritin 46 10-250 ng/mL Lipid Panel Reviewed date:04/24/2024 12:49:33 PM Interpretation:Normal Performing Lab:[address] [phone] Notes/Report: Triglycerides 68 <150 mg/dL Desirable Triglyceride: [...] Folate Reviewed date:04/24/2024 12:49:48 PM Interpretation:Normal Performing Lab:[address] [address] Notes/Report: Vitamin B12 761 200-900 pg/mL NORMAL 200-900 PG/ML INDETERMINATE 160-199 PG/ML DEFICIENT < 160 PG/ML Folate 14.4 > or = 4.0 ng/mL Reference Values: > or = 4.0 ng/mL < 4.0 ng/mL suggests folate deficiency Methotrexate, aminopterin and folinic acid (leucovorin) are chemotherapeutic agents whose molecular structures are similar to folate; therefore, the Hearing Impaired Teacher folate assay cannot be used for patients using these drugs. Vitamin D 25-OH Total Reviewed date:04/24/2024 12:49:33 PM Interpretation:Normal Performing Lab:[facility], [address] [place] [phone] Notes/Report: Vitamin D 25-OH Total 57.1 >30 [...] Hormone Reviewed date:04/24/2024 12:49:33 PM Interpretation:Normal Performing Lab:[facility], [address] [place] [phone] Notes/Report: Thyroid Stimulating Hormone 1.79 0.32-4.0 uIU/mL TSH 3rd Generation ([facility]) MAMMOGRAM, SCREENING Reviewed date:05/05/2024 02:57:36 PM Interpretation:Benign Performing Lab: Notes/Report: Benign Complete Blood Count Auto Di ff Reviewed date:10/12/2024 02:59:30 PM Interpretation:Normal Performing Lab:[facility], [address] [place] [phone] Notes/Report: White Blood Count 7.9 4.8-10.8 X10*3/uL Red Blood Count 4.18 4.20-5.50 X10*6/uL Hemoglobin 12.6 12.0-16.0 g/dl Hematocrit 37.1 37.0-47.0 % Mean Corpuscular Volume 88.8 80.0-98.0 fL Mean Corpuscular Hemoglobin 30.1 27.0-33.0 pg Mean Corpuscular HGB Conc 34.0 31.0-35.0 g/dl Red Cell Distribution Width 12.7 11.0-16.0 % Platelet Count 267 160-400 X10*3/uL Mean Platelet Volume 10.0 9.4-12.3 fL Neutrophils Percent Auto 47.9 45-73 % Imm Gran Pct Auto 0.1 0.0-0.4 % Lymphocytes Percent Auto 43.2 20-40 % Monocytes Percent Auto 6.5 2-11 % Eosinophils Percent Auto 1.8 0-4 % Basophils Percent Auto 0.5 0-2 % NRBC Pct Auto 0.0 0.0-0.2 /100WBC Neutrophils Absolute Auto 3.8 2.0-8.3 x10*3/uL Imm Gran Abs Auto 0.01 0.00-0.03 X10*3/uL Lymphocytes Absolute Auto 3.4 1.2-4.9 X10*3/uL Monocytes Absolute Auto 0.5 0.1-1.2 X10*3/uL Eosinophils Absolute Auto 0.1 0.0-0.4 X10*3/uL Basophils Absolute Auto 0.0 0.0-0.2 X10*3/uL NRBC Abs Auto 0.000 0.0-0.012 X10*3/uL Erythrocyte Sedimentation Ra te Reviewed date:10/12/2024 02:59:30 PM Interpretation:Abnormal Performing Lab:[address] [address] Notes/Report: Erythrocyte Sedimentation Rate 26 0-20 MM/HR Patients with polycythemia and many hemoglobin abnormalities may have depressed sed rates whereas patients with anemia may have elevated sed rates. Urinalysis and Microscopic Reviewed date:10/12/2024 01:44:49 PM Interpretation:Negative Performing Lab:[address] [address] Notes/Report: Color Urine Yellow Appearance Urine Clear PH 7.5 5.0-9.0 Glucose Urine UA Negative Negative mg/dL Urine Blood Negative Negative Specific [place] - Urine <= 1.005 1.005-1.025 Urine Protein Negative Neg-Trace mg/dL Urine Ketones Negative Negative mg/dL Nitrite Urine Negative Negative Leukocyte Esterase Urine Negative Negative RBC Urine 0-2 0-2 /HPF WBC Urine 0-5 0-5 /HPF Squamous Epithelial Cell Urine 0-2 0-2 /HPF Bacteria Urine None Seen None Seen Hyaline Casts Urine 0-2 0-2 /LPF Comprehensive Met. Panel Reviewed date:10/12/2024 02:59:30 PM Interpretation:Abnormal Performing Lab:[address] [phone] Notes/Report: Sodium 140 135-145 mmol/L Potassium 3.9 3.3-5.1 mmol/L Chloride 104 96-108 mmol/L Carbon Dioxide 29 22-29 mmol/L Anion Gap 11 12-20 Blood Urea Nitrogen 8 9-16 mg/dL Creatinine 0.62 0.5-1.4 mg/dL Estimated Glomerular Filt Rate > 60 Chronic Kidney Disease: Estimated GFR < 60 mL/min/1.73m2 Severe Kidney Disease: Estimated GFR < 15 mL/min/1.73m2 Glucose Random 87 60-115 mg/dL Calcium 9.2 8.4-10.2 mg/dL Bilirubin Total 0.4 0.0-1.0 mg/dL Aspartate Amino Transferase 31 5-31 U/L Alanine Aminotransferase 27 0-31 U/L Total Protein 7.7 6.5-8.0 g/dL Albumin Level 4.2 3.5-5.0 g/dL Alkaline Phosphatase 64 39-117 U/L C Reactive Protein Reviewed date:10/12/2024 02:59:30 PM Interpretation:Normal Performing Lab:[facility], [address] [place] [phone] Notes/Report: C Reactive Protein 0.34 < or = 0.50 mg/dL Thyroid Stimulating Hormone Reviewed date:10/12/2024 03:00:55 PM Interpretation:Normal Performing Lab:[facility], [address] [place] [phone] Notes/Report: Thyroid Stimulating Hormone 1.45 0.32-4.0 uIU/mL TSH 3rd Generation ([facility]) Urine Culture Reviewed date:10/13/2024 11:56:34 AM Interpretation:Abnormal Performing Lab:[facility], [address] [place] [phone] Notes/Report: O:STRAGA Strep agalactiae (Gr p B) Urine Culture Quant Urine Culture < 10,000 cfu/mL Urine Culture Susc N/A Urine Culture Susceptibility not routinely performed on this isolate. REASON FOR REFERRAL Reason colon cancer screeni ng Diagnosis 1 Colon cancer screeni ng (Z12.11) Referral Organization Alexandre Mitchell O, FACP Referring Provider First Name Alexandre Referring Provider Last Name Freddy Referring Provider Speciality Internal M edicine Referred Provider Evans Engel Referred Provider Specialty Gastroentero logy General Notes Brittnee Torres 4 12:00:03 PM EST > Referral and notes faxed prior to scheduling to [phone]. Referral Priority Routine Reason Palpitations Diagnosis 1 Palpitations (R00.2) Referral Organization Alexandre Nicole, FACP Referring Provider First Name Alexandre Referring Provider Last Name Freddy Referring Provider Speciality Internal M edicine Referred Provider Johnathan Pulido Referred Provider Specialty Cardiovascul ar Disease General Notes Angela Baum 024 10:05:52 AM EST > referral faxed; specialist's office will contact patient; patient aware. Referral Priority Routine MEDICATIONS Medication SIG (Take, Route, Frequency, Duration) Notes Start Date End Date Status Vitamin D (Cholecalciferol) 25 MCG (1000 UT) 1 capsule Orally Once a day Active Krill Oil [place]-3 500 MG 1 capsule Orall y Once every other day Active Multivitamin - 1 tablet Orally Once a day Active IMMUNIZATIONS Vaccine [...] Problem Vitamin D deficiency (E55.9) Active confirmed 37725162 Problem Anxiety (F41.9) Active confirmed 825526 02 Problem Chronic fatigue (R53.82) Active confirmed 08363001 Problem Cervical strain, initial encounter (S16.1XXA) Active confirmed 930719974 Problem Vertigo (R42) Active confirmed 61589613 1 Problem Fibrocystic breast disease, right (N60.11) Active confirmed 04337561 Problem Blurred vision (H53.8) Active confirmed 564720263 Problem Eustachian tube dysfunction, bilateral (H69.83) Active confirmed 21062473 Problem Gastroesophageal reflux disease, unspecified whether esophagitis present (K21.9) Active confirmed 164606354 Problem Menometrorrhagia (N92.1) Active confirmed 968980745 VITAL SIGNS Blood pressure diastolic 60 mm Hg 10/13/2024 Height 59.00 in 10/13/2024 Blood pressure systolic 102 mm Hg 10/13/2024 Weight 139 lbs 10/13/2024 BMI 28.07 kg/m2 10/13/2024 Encounters Encounter Location Date Provider Diagnosis Alexandre Hayes DO, [facility] [address], [place] [phone] 04/29/2024 Alexandre Hayes Vitamin D deficiency E55.9 Alexandre Hayes DO, [address] [id number] 10/13/2024 Alexandre Hayes Palpitations R00.2 a nd Vitamin D deficiency E55.9 Alexandre Hayes DO, [facility] [address], [place] [phone] 03/18/2024 Alexandre Hayes Vitamin D deficiency E55.9 ; Gastroesophageal reflux disease, unspecified whether esophagitis present K21.9 and Menometrorrhagia N92.1 Alexandre Hayes DO, [facility] [address], [place] [phone] 06/08/2024 Alexandre Hayes DO, [facility] [address], [place] [phone] 07/24/2024 Alexandre Hayes Chronic fatigue R53. 82 Alexandre Hayes DO, [facility] [address], [place] [id number] 08/17/2024 Alexandre Hayes DO, [facility] [address], [place] [phone] 09/30/2024 Alexandre Hayes Malodorous urine R82 .90 ASSESSMENTS Encounter Date Diagnosis Assessment Notes Treatment Notes Treatment Clinical Notes 04/29/2024 Vitamin D deficiency (ICD-10 - E55.9) 10/13/2024 Vitamin D deficiency (ICD-10 - E55.9) 10/13/2024 Palpitations (ICD-10 - R00.2) 03/18/2024 Vitamin D deficiency (ICD-10 - E55.9) 03/18/2024 Gastroesophageal ref lux disease, unspecified whether esophagitis present (ICD-10 - K21.9) 07/24/2024 Chronic fatigue (ICD -10 - R53.82) 09/30/2024 Malodorous urine (ICD-10 - R82.90) 03/18/2024 Menometrorrhagia (ICD-10 - N92.1) PLAN OF TREATMENT Pending Test Test Name Order Date CBC w DIFF 10/13/2024 COLOGUARD 07/02/2023 IRON PROFILE 10/13/2024 Ferritin 10/13/2024 Insurance Providers Payer Name Payer Address Payer Phone Subscriber Number Group Number Insured Name Patient Relationship to Insured Coverage Start Date Coverage End Date [facility] [address] [place], [place] [id number] Hector Unger Self - patient is the insured MEDICAL (GENERAL) HISTORY Medical History History ICD Code Vitamin D deficiency 268.9 Onychomycosis 110.1 seasonal allergies External hemorrhoid Abnormal mammogram fibrocystic breast disease Anxiety F41.9 Heartburn R12 Gastroesophageal reflux disease, unspeci fied whether esophagitis present K21.9 Surgical History Surgery Date(Month/Year) breast biopsy, right, fibroadenoma 11/16 16
--- OUTSIDE RECORDS SUMMARY | 2024-11-02 09:37 | XMS_ITS ---
Author Organization [facility] Address [address] [place] [address] Care Team Providers Care Establishment Guide Name Role Phone Alexandre Hayes DO Primary Care Provider Unavail able Alexandre Arambula Unavailable [phone] REASON FOR VISIT Patient presents today for a COLON SCREENING Encounters Encounter Location Date Provider Diagnosis [facility] [address] [place] [address] 01/15/2024 Alexandre Arambula PLAN OF TREATMENT No Information
--- OUTSIDE RECORDS SUMMARY | 2024-11-02 09:38 | XMS_ITS | Patient Health Record ---
Author Organization [facility] Address [address] [place] [address] Care Team Providers Care Pot Washer Name Role Phone Alexandre Salmeron DO Primary Care Provider Unavail able Alexandre Barrera Unavailable [phone] REASON FOR REFERRAL Referring Provider First Name Alexandre Referring Provider Last Name Freddy Referring Provider Speciality Internal M edicine Referred Organization [facility] Referred Provider Alexandre Barrera Referred Address [address] [facility] [address],[place], [place],[address], Referred Provider Specialty Gastroentero logy General Notes Kerrie Hernandez 024 03:54:35 PM EST > REQUESTED AN HMO BLUE REFERRAL FROM DR SALMERON'S OFFICE FOR VISIT WITH DR BARRERA ON [phone] Referral Priority Routine SOCIAL HISTORY Sex Assigned At : Social History Observation Description Sex Assigned At Unknown Encounters Encounter Location Date Provider Diagnosis [facility] [address] [place] [address] 01/15/2024 Alexandre Barrera [facility] [address] [place] [address] 01/13/2024 Alexandre Barrera PLAN OF TREATMENT No Information Insurance Providers Payer Name Payer Address Payer Phone Subscriber Number Group Number Insured Name Patient Relationship to Insured Coverage Start Date Coverage End Date HMO BLUE BCBS PROFESSIONAL CLAIMS [address] [place] [address] [id number] RAVI ABEBE Self - patient is the insured
--- OUTSIDE RECORDS SUMMARY | 2024-11-02 09:38 | XMS_ITS ---
Author Organization [facility] Address [address] [place] [address] Care Team Providers Care Hospital Plan Administrator Name Role Phone Alexandre Hayes DO Primary Care Provider Unavail able Alexandre Arambula Unavailable [phone] REASON FOR VISIT cancel OV Encounters Encounter Location Date Provider Diagnosis [facility] [address] [place] [address] 01/13/2024 Alexandre Arambula PLAN OF TREATMENT No Information
[2024-11-02 10:22] LABS: MANUAL DIFF FLAG NO
[2024-11-02 10:32] LABS: Basophils Percent Auto 0.5 % (0-2); Eosinophils Absolute Auto 0.2 X10*3/uL (0.0-0.4); Eosinophils Percent Auto 2.1 % (0-4); Hematocrit 39.5 % (37.0-47.0); Hemoglobin 12.9 g/dl (12.0-16.0); Imm Gran Abs Auto 0.02 X10*3/uL (0.00-0.03); Imm Gran Pct Auto 0.3 % (0.0-0.4); Lymphocytes Absolute Auto 3.1 X10*3/uL (1.2-4.9); Lymphocytes Percent Auto 42.1 % (20-40); Mean Corpuscular HGB Conc 32.7 g/dl (31.0-35.0); Mean Corpuscular Hemoglobin 29.7 pg (27.0-33.0); Mean Corpuscular Volume 90.8 fL (80.0-98.0); Mean Platelet Volume 9.9 fL (9.4-12.3); Monocytes Absolute Auto 0.5 X10*3/uL (0.1-1.2); Monocytes Percent Auto 6.6 % (2-11); Neutrophils Absolute Auto 3.6 x10*3/uL (2.0-8.3); Neutrophils Percent Auto 48.4 % (45-73); Platelet Count 264 X10*3/uL (160-400); Red Blood Count 4.35 X10*6/uL (4.20-5.50); Red Cell Distribution Width 12.7 % (11.0-16.0); White Blood Count 7.5 X10*3/uL (4.8-10.8)
[2024-11-02 11:38] LABS: Iron 107 mcg/dL (30-160); Percent Iron Saturation 36 % (15-50); Total Iron Binding Capacity 294 mcg/dL (228-428); Unsaturated Iron Binding 187 ug/dL
[2024-11-02 11:54] LABS: Ferritin 53 ng/mL (10-250)
== END 2024-11-02 09:15 | disposition home or self-care (01) ==
LOC: HO.HMGCLDS 09:14
PROVIDERS: PCP Internal Medicine; Visit Provider Internal Medicine
DX: R00.2 Palpitations (principal)
CPT/HCPCS: 36415; 82728; 83540; 85025

== ENCOUNTER 2024-11-06 10:35 | Outpatient (AMB) | payer BC, SELFPAY ==
--- NOTE | 2024-11-06 10:40 | A.OFFVIS_ITS ---
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 She was seen many years ago for arm discomfort and workup was normal. She has been experiencing some palpitations off and on. She is saying she has been going through some menstrual changes and is reaching menopause. She also had some iron-deficiency anemia for which she was on iron supplementation but recent iron studies appear to be normal. At times she noticed her heart to be racing but when she checks her heart rate is in 90s. She has never had documented tachycardia. Occasionally while exercising she feels as if the heart suddenly skips a beat and I think she is describing some PACs or PVCs. No syncope. She also noticed that when she is drinking tea she gets more palpitations her caffeine intake definitely affects the palpitations and she has stopped drinking BELINDA and that who has definitely helped her. TSH is normal. Not anemic. [facility] Medical History (Updated 11/06/24 @ 11:30 by Johnathan Pulido MD) Skin lesion of lower extremity Surgical History History of breast biopsy (~10/2015) Family History Mother Cervical cancer Social History (Updated 11/06/24 @ 10:47 by Daisy Hanks CMA) Alcohol intake: never Patient Tobacco Use Status: Never used Tobacco Review of Systems Const Denies chills, Denies fatigue, Denies fever(s), Denies frequent falls, Denies weakness, Denies weight gain and Denies weight loss ENT Denies dizziness Card Denies chest pain, Denies leg edema, Denies lightheadedness, Denies palpitations, Denies dyspnea, Denies dyspnea on exertion and Denies orthopnea Resp Denies cough, Denies dyspnea and Denies dyspnea on exertion GI Denies bloating and Denies change in bowel habits Musc Denies muscle weakness, Denies numbness and Denies tingling Neuro Denies dizziness, Denies frequent falls, Denies numbness, Denies tingling and Denies weakness Endo Denies fatigue and Denies palpitations Physical Exam Vital Signs: Last Vital Signs Pulse 72 11/06/24 10:44 BP 124/70 11/06/24 10:44 BMI result Body Mass Index 27.7 GENERAL APPEARANCE: in no acute distress, pleasant. NECK: no carotid bruit, no jugular venous distention. SKIN: no suspicious lesions, warm and dry. HEART: no murmurs, regular rate and rhythm. LUNGS: clear to auscultation bilaterally. ABDOMEN: soft, nontender. EXTREMITIES: no edema. PERIPHERAL PULSES: equal. NEUROLOGIC: No gross deficits, AAO X 3 Office Procedures EKG Details: Sinus rhythm 72 beats per minute, normal axis, nonspecific T-wave changes, QTC 411 milliseconds. 83517-Gvkzhmhyscztcnxum, Complete Assessment & Plan Assessment & Plan (1) Palpitations: Code(s): R00.2 - Palpitations Category: Medical Plan Pleasant 49-year-old female who is here for assessment of palpitations. She has normal ECG currently. Clinical story is not very concerning. Occasional palpitations which happen with caffeine intake and also when she is feeling palpitations she checks her heart rate and it was normal she has had some exercise-related palpitations which sound like PVCs/PACs. We discussed in detail and we have decided do a Holter monitor. If Holter shows any concerns then we will do further testing including echocardiogram otherwise she is doing reasonably well with lifestyle changes. Thank you for allowing me to participate in the care of your patient. Please feel free to contact me if you have any questions. Coding Level of Care Code New Pt Level 4 (89022) Diagnoses Palpitations R00.2 CPT Codes EKG - CPT: 56884-Oqidufwzshsngpewh, Complete ([id number])
[2024-11-06 10:44] VITALS: BP 124/70; PULSE 72; BMI 27.7
--- OUTSIDE RECORDS SUMMARY | 2024-11-06 10:49 | XMS_ITS ---
Author Organization Alexandre Hayes DO [facility] Address [address] [place], [place] [phone] Care Team Providers Care Bag Shop Worker Name Role Phone Alexandre Hayes Primary Care Provider [phone] REASON FOR VISIT Message Encounters Encounter Location Date Provider Diagnosis Alexandre Hayes DO, [address] [phone] 09/30/2024 Alexandre Hayes Malodorous urine R82.90 ASSESSMENTS Encounter Date Diagnosis Assessment Notes Treatment Notes Treatment Clinical Notes 09/30/2024 Malodorous urine (ICD-10 - R82.90) PLAN OF TREATMENT No Information
--- OUTSIDE RECORDS SUMMARY | 2024-11-06 10:49 | XMS_ITS ---
Author Organization Alexandre Hayes DO, FACP Address [address] [place], [place] [id number] Care Team Providers Care Ion Exchange Operator Name Role Phone Alexandre Hayes Primary Care Provider [phone] REASON FOR VISIT physical Encounters Encounter Location Date Provider Diagnosis Alexandre Hayes DO, FACP [address] [place] [phone] 11/03/2024 Alexandre Hayes PLAN OF TREATMENT No Information
--- OUTSIDE RECORDS SUMMARY | 2024-11-06 10:49 | XMS_ITS ---
Author Organization [facility] Address [address] [place] [address] Care Team Providers Care Automotive Service Consultant Name Role Phone Alexandre Hayes DO Primary Care Provider Unavail able Alexandre Arambula Unavailable [phone] REASON FOR VISIT cancel OV Encounters Encounter Location Date Provider Diagnosis [facility] [address] [place] [address] 01/13/2024 Alexandre Arambula PLAN OF TREATMENT No Information
--- OUTSIDE RECORDS SUMMARY | 2024-11-06 10:49 | XMS_ITS | Patient Health Record ---
Author Organization [facility] Address [address] [place] [address] Care Team Providers Care Slasher Operator Name Role Phone Alexandre Salmeron DO Primary Care Provider Unavail able Alexandre Barrera Unavailable [phone] REASON FOR REFERRAL Referring Provider First Name Alexandre Referring Provider Last Name Freddy Referring Provider Speciality Internal M edicine Referred Organization [facility] Referred Provider Alexandre Barrera Referred Address [address] [facility] [address],[place], [place],[address], Referred Provider Specialty Gastroentero logy General Notes Kerrie Hernandez 024 03:54:35 PM EST > REQUESTED AN HMO BLUE REFERRAL FROM DR SALMERON'S OFFICE FOR VISIT WITH DR BARRERA ON [phone] Referral Priority Routine SOCIAL HISTORY Sex Assigned At : Social History Observation Description Sex Assigned At Unknown Encounters Encounter Location Date Provider Diagnosis [facility] [address] [place] [address] 01/15/2024 Alexandre Barrera [facility] [address] [place] [address] 01/13/2024 Alexandre Barrera PLAN OF TREATMENT No Information Insurance Providers Payer Name Payer Address Payer Phone Subscriber Number Group Number Insured Name Patient Relationship to Insured Coverage Start Date Coverage End Date HMO BLUE BCBS PROFESSIONAL CLAIMS [address] [place] [address] [phone] [id number] RAVI ABEBE Self - patient is the insured
--- OUTSIDE RECORDS SUMMARY | 2024-11-06 10:49 | XMS_ITS ---
Author Organization Alexandre Hayes DO, FACP Address [address] [place], [place] [phone] Care Team Providers Care Mat Gauger Name Role Phone Alexandre Hayes Primary Care [...] Orally Once a day Active Krill Oil [place]-3 500 MG 1 capsule Orall y Once [...] Location Date Provider Diagnosis Alexandre Hayes DO, [address] [phone] 10/13/2024 Alexandre Hayes Palpitations R00.2 and Vitamin D deficiency E55.9 ASSESSMENTS Encounter Date Diagnosis Assessment Notes Treatment Notes Treatment Clinical Notes 10/13/2024 Palpitations (ICD-10 - R00.2) 10/13/2024 Vitamin D deficiency (ICD-10 - E55.9) PLAN OF TREATMENT Medication Medication Name Sig Start Date Stop Date Notes Vitamin D (Cholecalciferol) 25 MCG (1000 UT) 1 capsule Orally Once a day Krill Oil [place]-3 500 MG 1 capsule Orall y Once [...] General Examination GENERAL APPEARANCE: in no ac riki distress, well developed, well nourished HEAD: normocephalic, [...]
--- OUTSIDE RECORDS SUMMARY | 2024-11-06 10:49 | XMS_ITS ---
Author Organization [facility] Address [address] [place] [address] Care Team Providers Care Lease Out Worker Name Role Phone Alexandre Hayes DO Primary Care Provider Unavail able Alexandre Arambula Unavailable [phone] REASON FOR VISIT Patient presents today for a COLON SCREENING Encounters Encounter Location Date Provider Diagnosis [facility] [address] [place] [address] 01/15/2024 Alexandre Arambula PLAN OF TREATMENT No Information
--- OUTSIDE RECORDS SUMMARY | 2024-11-06 10:49 | XMS_ITS | Patient Health Record ---
Author Organization Alexandre Hayes DO, FACP Address [address], [place] [address] Care Team Providers Care Global Product Manager Name Role Phone Alexandre Hayes Primary Care Provider ALLERGIES Allergen (clinical drug ingredient) Drug/Non Drug Allergy documented on EMR Reaction Allergy Type Onset Date Status amoxicillin Amoxicillin rash Drug Allergy Act loree RESULTS Component Value Reference Range Notes Complete Blood Count Auto Di ff Reviewed date:04/24/2024 12:49:33 PM Interpretation:Normal Performing Lab:[facility], [address] [place] [phone] Notes/Report: White Blood Count 7.2 4.8-10.8 X10*3/uL [...] NRBC Abs Auto 0.000 0.0-0.012 X10*3/uL Comprehensive [place]. Panel Fa st Reviewed date:04/24/2024 12:49:33 PM Interpretation:Normal Performing Lab:[facility], [address] [place] [phone] Notes/Report: Sodium 141 135-145 mmol/L Potassium 3.9 3.3-5.1 mmol/L Chloride 106 96-108 mmol/L Carbon Dioxide 28 22-29 mmol/L Anion Gap 11 12-20 Blood Urea Nitrogen 9 9-16 mg/dL Creatinine 0.68 0.5-1.4 mg/dL Estimated Glomerular Filt Rate > 60 NOTE: For -British individuals, multiply the result by 1.210. Chronic [...] PROFILE Reviewed date:04/24/2024 12:49:33 PM Interpretation:Normal Performing Lab:[facility], [address] [place] [phone] Notes/Report: Iron 102 30-160 mcg/dL Total Iron Binding Capacity 302 228-428 mcg/dL Percent Iron Saturation 34 15-50 % Unsaturated Iron Binding 200 Ferritin Reviewed date:04/24/2024 12:49:33 PM Interpretation:Normal Performing Lab:[address] [address] Notes/Report: Ferritin 46 10-250 ng/mL Lipid Panel Reviewed date:04/24/2024 12:49:33 PM Interpretation:Normal Performing Lab:[address] [phone] Notes/Report: Triglycerides 68 <150 mg/dL Desirable Triglyceride: [...] Folate Reviewed date:04/24/2024 12:49:48 PM Interpretation:Normal Performing Lab:[address] [phone] Notes/Report: Vitamin B12 761 200-900 pg/mL NORMAL 200-900 PG/ML INDETERMINATE 160-199 PG/ML DEFICIENT < 160 PG/ML Folate 14.4 > or = 4.0 ng/mL Reference Values: > or = 4.0 ng/mL < 4.0 ng/mL suggests folate deficiency Methotrexate, aminopterin and folinic acid (leucovorin) are chemotherapeutic agents whose molecular structures are similar to folate; therefore, the Development Engineer folate assay cannot be used for patients using these drugs. Vitamin D 25-OH Total Reviewed date:04/24/2024 12:49:33 PM Interpretation:Normal Performing Lab:[facility], [address] [place] [phone] Notes/Report: Vitamin D 25-OH Total 57.1 >30 [...] Hormone Reviewed date:04/24/2024 12:49:33 PM Interpretation:Normal Performing Lab:[facility], [address] [place] [phone] Notes/Report: Thyroid Stimulating Hormone 1.79 0.32-4.0 uIU/mL TSH 3rd Generation ([facility]) MAMMOGRAM, SCREENING Reviewed date:05/05/2024 02:57:36 PM Interpretation:Benign Performing Lab: Notes/Report: Benign Complete Blood Count Auto Di ff Reviewed date:10/12/2024 02:59:30 PM Interpretation:Normal Performing Lab:[facility], [address] [place] [phone] Notes/Report: White Blood Count 7.9 4.8-10.8 X10*3/uL [...] te Reviewed date:10/12/2024 02:59:30 PM Interpretation:Abnormal Performing Lab:[address] [phone] Notes/Report: Erythrocyte Sedimentation Rate 26 0-20 MM/HR Patients with polycythemia and many hemoglobin abnormalities may have depressed sed rates whereas patients with anemia may have elevated sed rates. Urinalysis and Microscopic Reviewed date:10/12/2024 01:44:49 PM Interpretation:Negative Performing Lab:[address] [address] Notes/Report: Color Urine Yellow Appearance Urine Clear PH 7.5 5.0-9.0 Glucose Urine UA Negative Negative mg/dL Urine Blood Negative Negative Specific [place] - Urine <= 1.005 1.005-1.025 Urine Protein Negative Neg-Trace mg/dL Urine Ketones Negative Negative mg/dL Nitrite Urine Negative Negative Leukocyte Esterase Urine Negative Negative RBC Urine 0-2 0-2 /HPF WBC Urine 0-5 0-5 /HPF Squamous Epithelial Cell Urine 0-2 0-2 /HPF Bacteria Urine None Seen None Seen Hyaline Casts Urine 0-2 0-2 /LPF Comprehensive Met. Panel Reviewed date:10/12/2024 02:59:30 PM Interpretation:Abnormal Performing Lab:[address] [phone] Notes/Report: Sodium 140 135-145 mmol/L Potassium 3.9 [...] Protein Reviewed date:10/12/2024 02:59:30 PM Interpretation:Normal Performing Lab:[address] [phone] Notes/Report: C Reactive Protein 0.34 < or = 0.50 mg/dL Thyroid Stimulating Hormone Reviewed date:10/12/2024 03:00:55 PM Interpretation:Normal Performing Lab:[address] [phone] Notes/Report: Thyroid Stimulating Hormone 1.45 0.32-4.0 uIU/mL TSH 3rd Generation ([facility]) Urine Culture Reviewed date:10/13/2024 11:56:34 AM Interpretation:Abnormal Performing Lab:[address] [address] Notes/Report: O:STRAGA Strep agalactiae (Gr p B) Urine Culture Quant Urine Culture < 10,000 cfu/mL Urine Culture Susc N/A Urine Culture Susceptibility not routinely performed on this isolate. Complete Blood Count Auto Di ff Reviewed date:11/03/2024 09:12:57 AM Interpretation:R Performing Lab:[address] [address] Notes/Report: White Blood Count 7.5 4.8-10.8 X10*3/uL Red Blood Count 4.35 4.20-5.50 X10*6/uL Hemoglobin 12.9 12.0-16.0 g/dl Hematocrit 39.5 37.0-47.0 % Mean Corpuscular Volume 90.8 80.0-98.0 fL Mean Corpuscular Hemoglobin 29.7 27.0-33.0 pg Mean Corpuscular HGB Conc 32.7 31.0-35.0 g/dl Red Cell Distribution Width 12.7 11.0-16.0 % Platelet Count 264 160-400 X10*3/uL Mean Platelet Volume 9.9 9.4-12.3 fL Neutrophils Percent Auto 48.4 45-73 % Imm Gran Pct Auto 0.3 0.0-0.4 % Lymphocytes Percent Auto 42.1 20-40 % Monocytes Percent Auto 6.6 2-11 % Eosinophils Percent Auto 2.1 0-4 % Basophils Percent Auto 0.5 0-2 % NRBC Pct Auto 0.0 0.0-0.2 /100WBC Neutrophils Absolute Auto 3.6 2.0-8.3 x10*3/uL Imm Gran Abs Auto 0.02 0.00-0.03 X10*3/uL Lymphocytes Absolute Auto 3.1 1.2-4.9 X10*3/uL Monocytes Absolute Auto 0.5 0.1-1.2 X10*3/uL Eosinophils Absolute Auto 0.2 0.0-0.4 X10*3/uL Basophils Absolute Auto 0.0 0.0-0.2 X10*3/uL NRBC Abs Auto 0.000 0.0-0.012 X10*3/uL IRON PROFILE Reviewed date:11/03/2024 09:31:42 AM Interpretation:Reviewed Performing Lab:[address] [address] Notes/Report: Iron 107 30-160 mcg/dL Total Iron Binding Capacity 294 228-428 mcg/dL Percent Iron Saturation 36 15-50 % Unsaturated Iron Binding 187 Ferritin Reviewed date:11/03/2024 09:32:02 AM Interpretation:Reviewed Performing Lab:[address] [address] Notes/Report: Ferritin 53 10-250 ng/mL REASON FOR REFERRAL Reason colon cancer screeni ng Diagnosis 1 Colon cancer screeni ng (Z12.11) Referral Organization Alexandre Nicole FACP Referring Provider First Name Alexandre Referring Provider Last Name Freddy Referring Provider Speciality Internal edicine Referred Provider Evans Engel Referred Provider Specialty Gastroentero logy General Notes Brittnee Torres 4 12:00:03 PM EST > Referral and notes faxed prior to scheduling to [phone]. Referral Priority Routine Reason Palpitations Diagnosis 1 Palpitations (R00.2) Referral Organization Alexandre Nicole FACP Referring Provider First Name Alexandre Referring Provider Last Name Freddy [facility] Referred Provider Johnathan Pulido Referred Provider Specialty Cardiovascul ar Disease General Notes Angela Baum 024 10:05:52 AM EST > referral faxed; specialist's office will contact patient; patient aware. Referral Priority Routine MEDICATIONS Medication SIG (Take, Route, Frequency, Duration) Notes Start Date End Date Status Vitamin D (Cholecalciferol) 25 MCG (1000 UT) 1 capsule Orally Once a day Active Krill Oil [place]-3 500 MG 1 capsule Orall y Once [...] Problem Vitamin D deficiency (E55.9) Active confirmed 54258385 Problem Anxiety (F41.9) Active confirmed 910839 02 Problem Chronic fatigue (R53.82) Active confirmed 98740363 Problem Cervical strain, initial encounter (S16.1XXA) Active confirmed 442542241 Problem Vertigo (R42) Active confirmed 58983898 1 Problem Fibrocystic breast disease, right (N60.11) Active confirmed 78515833 Problem Blurred vision (H53.8) Active confirmed 145210453 Problem Eustachian tube dysfunction, bilateral (H69.83) Active confirmed 29992339 Problem Gastroesophageal reflux disease, unspecified whether esophagitis present (K21.9) Active confirmed 327221371 Problem Menometrorrhagia (N92.1) Active confirmed 263668226 VITAL SIGNS Blood pressure diastolic 60 mm Hg 10/13/2024 Height 59.00 in 10/13/2024 Blood pressure systolic 102 mm Hg 10/13/2024 Weight 139 lbs 10/13/2024 BMI 28.07 kg/m2 10/13/2024 Encounters Encounter Location Date Provider Diagnosis Alexandre Hayes DO, [address] [id number] 11/03/2024 Alexandre Hayes DO, [address] [id number] 04/29/2024 Alexandre Hayes Vitamin D deficiency E55.9 Alexandre Hayes DO, [facility] [address], [place] [id number] 10/13/2024 Alexandre Hayes Palpitations R00.2 a nd Vitamin D deficiency E55.9 Alexandre Hayes DO, [facility] [address], [place] [id number] 03/18/2024 Alexandre Hayes Vitamin D deficiency E55.9 ; Gastroesophageal reflux disease, unspecified whether esophagitis present K21.9 and Menometrorrhagia N92.1 Alexandre Hayes DO, [facility] [address], [place] [id number] 06/08/2024 Alexandre Hayes DO, [facility] [address], [place] [id number] 07/24/2024 Alexandre Hayes Chronic fatigue R53. 82 Alexandre Hayes DO, [facility] [address], [place] [id number] 08/17/2024 Alexandre Hayes DO, [facility] [address], [place] [id number] 09/30/2024 Alexandre Hayes Malodorous urine R82 .90 [...] Insured Coverage Start Date Coverage End Date [facility] [address] [place], [place] [id number] Hector Unger Self - patient is the insured MEDICAL (GENERAL) HISTORY Medical History History ICD Code Vitamin D deficiency 268.9 Onychomycosis 110.1 seasonal allergies External hemorrhoid Abnormal mammogram fibrocystic breast disease Anxiety F41.9 Heartburn R12 Gastroesophageal reflux disease, unspeci fied whether esophagitis present K21.9 Surgical History Surgery Date(Month/Year) breast biopsy, right, fibroadenoma 11/16 16
== END 2024-11-06 11:32 | disposition home or self-care (01) ==
PROVIDERS: PCP Internal Medicine; Visit Provider Internal Medicine Cardiovascular Disease
DX: R00.2 Palpitations (principal)
CPT/HCPCS: 93010; 99204

== ENCOUNTER → 2024-11-06 10:35 | Outpatient (BNVA) | payer BC, SELFPAY | PROVIDERS: PCP Internal Medicine; Visit Provider Internal Medicine Cardiovascular Disease | DX: R00.2 Palpitations (principal) | CPT/HCPCS: 93005 ==

== ENCOUNTER 2024-11-24 11:14 | Outpatient (AMB) | payer BC, SELFPAY ==
--- NOTE | 2024-11-24 11:17 | MHC.PC.OV ---
Vital Signs 11/24/24 11:26 Height 4 ft 10 in Weight 140 lb BMI 29.3 BP 115/70 Blood Pressure Location Rt brachial Pulse 55 Pulse Source Pulse Oximeter Temp 97.4 F Pulse Oximetry (%) 100 Intake Visit Reasons: Upper respiratory infection Intake Note: coughing more at night Allergies amoxicillin [From AMOXIL] Allergy (Intermediate, Verified 11/24/24 12:08) RASH Medication List - Last Reconciled 11/24/24 by Elle Wheeler PA-C azithromycin For 250 mg dose pack: take 500 mg today (day 1), then 250 mg for 4 days (days 2-5) PO cholecalciferol (vitamin D3) 25 mcg PO DAILY krill oil mg PO multivitamin 1 tab PO DAILY ondansetron 4 mg PO Q8H PRN PFSH Medical History Skin lesion of lower extremity Surgical History History of breast biopsy (~10/2015) Family History Mother Cervical cancer Social History Alcohol intake: never Patient Tobacco Use Status: Never used Tobacco Physical exam (Primary Care) Vital Signs: Last Vital Signs Temp 97.4 F 11/24/24 11:26 Pulse 55 11/24/24 11:26 BP 115/70 11/24/24 11:26 Pulse Ox 100 11/24/24 11:26 BMI result Body Mass Index 29.3 Tobacco/Smoking Status: Tobacco use Status Patient Tobacco Use Status Never used Tobacco 11/24/24 11:19 Coding Level of Care Code New Pt Level 4 (52667) Complex EM visit Add On G2211 Diagnoses Vitamin D deficiency E55.9 Influenzal bronchitis J11.1 Assessment & Plan Assessment & Plan (1) Vitamin D deficiency: Code(s): E55.9 - Vitamin D deficiency, unspecified Category: Medical Plan: Patient is currently on vitamin-D supplement. Condition is chronic and stable continue to monitor. (2) Influenzal bronchitis: Code(s): J11.1 - Influenza due to unidentified influenza virus with other respiratory manifestations Category: Medical Plan: Patient will be started on a Z-Venancio. Condition is stable continue to monitor. Plan Plan - Prescribe Azithromycin Z-Venancio) considering patient's allergy to Amoxicillin. - Prescribe Ondansetron Zofran) for nausea management. - Schedule follow-up with Dr. Torres for further evaluation and physical examination. - Recommended completion of cholesterol panel prior to upcoming physical examination. Orders: Orders Lipid Panel Today Z00.00 - Encounter for general adult medical examination without abnormal findings Medications: New azithromycin For 250 mg dose pack: take 500 mg today (day 1), then 250 mg for 4 days (days 2-5) PO 6 tabs 0RF ondansetron 4 mg PO Q8H PRN 20 tabs 0RF nausea and vomiting Patient Instructions: Patient Instructions - Begin the prescribed course of Azithromycin as directed. - Take Ondansetron as needed for nausea. - Ensure to have the cholesterol blood panel completed before the next appointment. - Maintain hydration and adequate nutritional intake despite reduced appetite. - Monitor symptoms and seek medical attention should symptoms worsen or new symptoms develop. - Follow up with Dr. Torres as planned for a complete health examination and discussion of ongoing health management. Scribe Plan - Not visible on output: History of Present Illness The patient is a 49-year-old female presenting with symptoms consistent with influenza A virus infection. The initial diagnosis of influenza A was made after household exposure, with her son testing positive for the same strain the previous . The patient's symptoms began last week, initially presenting with febrile episodes that persisted for approximately one week, with fevers resolving by the preceding Saturday. The patient experienced significant fatigue, impacting her ability to work, as well as pronounced nausea and poor appetite persisting at the time of visit. Although fever is no longer present, she continues to report a cough and mild nausea. Previous interventions include symptomatic care with improvement noted; however, persistent symptoms have prompted the current visit. Notably, there is a history of COVID-19, which the patient described as less severe than her current illness. Additionally, the patient has a past medical history of Vitamin D deficiency and resolved iron deficiency anemia. Recent blood work was performed earlier this month, indicating normal iron levels and ferritin at 53. The patient is intrigued by the possibility of ghazala influenza B despite having the influenza A virus currently. Social History - Employment: Patient is actively working but was unable to work last week due to illness. - Family: Lives with a son and . - Medications: Patient is advised to take iron supplements as needed. - Preventative Care: Mammograms are regularly conducted on an annual basis. - Activity: Patient reports feeling fatigued but pushes herself to maintain some level of activity. Review of Systems - Respiratory: Reports persistent cough. Denies shortness of breath. - Gastrointestinal: Reports nausea and reduced appetite. Denies vomiting and diarrhea. - General: Denies current fever. Reports previous episodes of fever. Physical Exam Appearance: Alert. Oriented X3. No acute distress. Head: Normal external exam. Normocephalic. Atraumatic. Eyes: Pupils are equal, round, and reactive to light. Extraocular movements intact. Conjunctiva and sclera normal. Eyelids normal. Ears: External auditory canal normal. Tympanic membranes normal. Throat: Pharynx normal. Uvula midline. Moist mucous membranes. Neck: Normal inspection. Neck supple. Full range of motion. No adenopathy. Thyroid Normal. No meningeal signs. No neck mass noted. Cardiovascular: Normal heart rate and rhythm. Heart sound normal. No murmurs noted. Pulses normal throughout. Respiratory: No respiratory distress. Painless inspiration. Breath sounds normal. No wheezes/rales/rhonchi noted. Chest nontender. No accessory muscle usage noted or decreased air movement noted. Abdomen: Soft and nontender. Bowel sounds normal in all 4 quadrants. No distention noted. No organomegaly noted. No visible injury noted. Back: No costovertebral angle tenderness. Full range of motion noted. Skin: Skin warm and dry. Normal skin color. Normal skin turgor. No rashes/lesions/lacerations noted. Extremities: No lower extremity edema. Extremities exhibit normal range of motion. Extremities nontender. Neuro: Oriented X 3. No motor deficit. No sensory deficit. Reflexes normal. Results - Labs: Recent blood tests indicate normal iron levels with ferritin at 53. - Tests: Influenza A diagnosis confirmed with prior testing done following son's diagnosis. Plan - Prescribe Azithromycin Z-Venancio) considering patient's allergy to Amoxicillin. - Prescribe Ondansetron Zofran) for nausea management. - Schedule follow-up with Dr. Torres for further evaluation and physical examination. - Recommended completion of cholesterol panel prior to upcoming physical examination. Patient was informed and verbally consented to the use of an ambient scribe for clinic note documentation during this visit. Discussion Notes During the visit, I discussed the patient's current symptoms consistent with influenza A and addressed concerns about persistent cough and nausea. Given the patient's allergy to Amoxicillin and her 's successful response to antibiotics, I recommended a Z-Venancio for her. Ondansetron was suggested to manage her ongoing nausea. I reinforced the excellent prognosis with current management and recommended follow-up with Dr. Torres. I also discussed the importance of obtaining a cholesterol panel to evaluate overall health and wellness. The risks and benefits of the prescribed medications, along with possible side effects, were communicated, ensuring informed consent from the patient. Patient Instructions - Begin the prescribed course of Azithromycin as directed. - Take Ondansetron as needed for nausea. - Ensure to have the cholesterol blood panel completed before the next appointment. - Maintain hydration and adequate nutritional intake despite reduced appetite. - Monitor symptoms and seek medical attention should symptoms worsen or new symptoms develop. - Follow up with Dr. Torres as planned for a complete health examination and discussion of ongoing health management.
[2024-11-24 11:26] VITALS: BP 115/70; PULSE 55; TEMP 36.3; O2SAT 100; BMI 29.3
--- OUTSIDE RECORDS SUMMARY | 2024-11-24 12:30 | XMS_ITS ---
Author Organization Alexandre Hayes DO, FACP Address [address], [place] [id number] Care Team Providers Care Policy Director Name Role Phone Alexandre Hayes Primary Care Provider [phone] REASON FOR VISIT physical Encounters Encounter Location Date Provider Diagnosis Alexandre Hayes DO, FACP [address] [place] [phone] 11/03/2024 Alexandre Hayes PLAN OF TREATMENT No Information
--- OUTSIDE RECORDS SUMMARY | 2024-11-24 12:30 | XMS_ITS | Patient Health Record ---
Author Organization [facility] Address [address] [place] [address] Care Team Providers Care Red Hat Engineer Name Role Phone Freddy (RETIRED) Alexandre YU Primary Care Provid er Unavailable Alexandre Barrera Unavailable [phone] REASON FOR REFERRAL Referring Provider First Name Alexandre Referring Provider Last Name Freddy (RE TIRED) Referring Provider Speciality Internal M edicine Referred Organization [facility] Referred Provider Alexandre Barrera Referred Address [address] [facility] [address],[place], [place],[address], Referred Provider Specialty Gastroentero logy General Notes Kerrie Hernandez 024 03:54:35 PM EST > REQUESTED AN HMO BLUE REFERRAL FROM DR SALMERON'S OFFICE FOR VISIT WITH DR BARRERA ON [phone] Referral Priority Routine SOCIAL HISTORY Sex Assigned At : Social History Observation Description Sex Assigned At Unknown Encounters Encounter Location Date Provider Diagnosis [facility] [address] [place] [address] 01/15/2024 Alexandre Barrera [facility] [address] [place] [address] 01/13/2024 Alexandre Barrera PLAN OF TREATMENT No Information Insurance Providers Payer Name Payer Address Payer Phone Subscriber Number Group Number Insured Name Patient Relationship to Insured Coverage Start Date Coverage End Date HMO BLUE [employer] PROFESSIONAL CLAIMS [address] [place] [address] [phone] [id number] RAVI ABEBE Self - patient is the insured
--- OUTSIDE RECORDS SUMMARY | 2024-11-24 12:30 | XMS_ITS ---
Author Organization [facility] Address [address] [place] [address] Care Team Providers Care Stock Sheets Cleaner Inspector Name Role Phone Freddy (RETIRED) Alexandre YU Primary Care Provid er Unavailable Alexandre Arambula Unavailable [phone] REASON FOR VISIT cancel OV Encounters Encounter Location Date Provider Diagnosis [facility] [address] [place] [address] 01/13/2024 Alexandre Arambula PLAN OF TREATMENT No Information
--- OUTSIDE RECORDS SUMMARY | 2024-11-24 12:30 | XMS_ITS ---
Author Organization Alexandre Hayes DO [facility] Address [address] [place], [place] [id number] Care Team Providers Care Fire Range Technician Name Role Phone Alexandre Hayes Primary Care Provider [phone] REASON FOR VISIT Message Encounters Encounter Location Date Provider Diagnosis Alexandre Hayes DO, [address] [phone] 09/30/2024 Alexandre Hayes Malodorous urine R82.90 ASSESSMENTS Encounter Date Diagnosis Assessment Notes Treatment Notes Treatment Clinical Notes 09/30/2024 Malodorous urine (ICD-10 - R82.90) PLAN OF TREATMENT No Information
--- OUTSIDE RECORDS SUMMARY | 2024-11-24 12:31 | XMS_ITS ---
Author Organization [facility] Address [address] [place] [address] Care Team Providers Care Industrial Electrical Engineer Name Role Phone Freddy (RETIRED) Alexandre YU Primary Care Provid er Unavailable Alexandre Arambula Unavailable [phone] REASON FOR VISIT Patient presents today for a COLON SCREENING Encounters Encounter Location Date Provider Diagnosis [facility] [address] [place] [phone] 01/15/2024 Alexandre Arambula PLAN OF TREATMENT No Information
--- OUTSIDE RECORDS SUMMARY | 2024-11-24 12:31 | XMS_ITS ---
Author Organization Alexandre Hayes DO, FACP Address [address] [place], [place] [id number] Care Team Providers Care Wastewater Engineer Name Role Phone Alexandre Hayes Primary Care [...] Orally Once a day Active Krill Oil [place]-3 500 MG 1 capsule Orall y Once [...] Location Date Provider Diagnosis Alexandre Hayes DO, [address] [phone] 10/13/2024 Alexandre Hayes Palpitations R00.2 and Vitamin D deficiency E55.9 ASSESSMENTS Encounter Date Diagnosis Assessment Notes Treatment Notes Treatment Clinical Notes 10/13/2024 Palpitations (ICD-10 - R00.2) 10/13/2024 Vitamin D deficiency (ICD-10 - E55.9) PLAN OF TREATMENT Medication Medication Name Sig Start Date Stop Date Notes Vitamin D (Cholecalciferol) 25 MCG (1000 UT) 1 capsule Orally Once a day Krill Oil [place]-3 500 MG 1 capsule Orall y Once [...]
== END 2024-11-24 11:49 | disposition home or self-care (01) ==
LOC: HO.HMCSH 11:14
PROVIDERS: PCP Internal Medicine; Visit Provider Physician Assistant Medical
DX: E55.9 Vitamin D deficiency, unspecified (principal); J11.1 Influenza due to unidentified influenza virus with other respiratory manifestations

== ENCOUNTER → 2024-11-24 11:14 | Outpatient (BNVA) | payer BC, SELFPAY | PROVIDERS: PCP Internal Medicine; Visit Provider Physician Assistant Medical ==

== ENCOUNTER 2024-12-01 08:54 | Outpatient (AMB) | payer BC, SELFPAY ==
[2024-12-01 09:07] VITALS: BP 106/68; PULSE 71; TEMP 36.8; O2SAT 100; BMI 26.6
--- NOTE | 2024-12-01 09:07 | MHC.PC.OV ---
Vital Signs 12/01/24 09:07 Height 5 ft 1 in Weight 141 lb BMI 26.6 BP 106/68 Blood Pressure Location Rt brachial Position Sitting Pulse 71 Temp 98.2 F Pulse Oximetry (%) 100 Intake Visit Reasons: physical Allergies amoxicillin [From AMOXIL] Allergy (Intermediate, Verified 12/01/24 09:38) RASH Medication List - Last Reconciled 12/01/24 by Dennys Colindres MD cholecalciferol (vitamin D3) 25 mcg PO DAILY krill oil mg PO multivitamin 1 tab PO DAILY PFSH Medical History (Updated 11/24/24 @ 12:10 by Elle Wheeler PA-C) Skin lesion of lower extremity Surgical History History of breast biopsy (~10/2015) Family History Mother Cervical cancer Social History Alcohol intake: never Patient Tobacco Use Status: Never used Tobacco Physical exam (Primary Care) Vital Signs: Last Vital Signs Temp 98.2 F 12/01/24 09:07 Pulse 71 12/01/24 09:07 BP 106/68 12/01/24 09:07 Pulse Ox 100 12/01/24 09:07 Care Plan Goal for BP management: BP in range. BMI result Body Mass Index 41.3 BMI Assessment/Plan discussion: High Tobacco/Smoking Status: Tobacco use Status Patient Tobacco Use Status Never used Tobacco 12/01/24 09:08 Const General: cooperative and healthy appearing Nutritional Appearance: well nourished Orientation/consciousness: patient oriented x3 Limitations: no limitations HENMT Head: Yes normal to inspection Eyes General: appearance normal, both eyes and all related structures Neck Neck: Yes normal visual inspection Chest Chest palpation & inspection: normal palpation of entire chest wall Resp Effort & Inspection: normal respiratory effort Neuro General: patient oriented x3 Coding Level of Care Code New Pt Prev Care 40-64y(13587) Diagnoses Palpitations R00.2 Annual physical exam Z00.00 Assessment & Plan Assessment & Plan (1) Palpitations: Code(s): R00.2 - Palpitations Category: Medical Plan: Most likely anxiety related. Patient has seen a access services assistant and is scheduled for a holter monitor. (2) Annual physical exam: Code(s): Z00.00 - Encounter for general adult medical examination without abnormal findings Plan: SMOOTH revd. Fasting lipid panel is pending. Uptodate on mammogram and colonoscopy. Orders: Orders XR knee RT 3V Today S83.91XA - Sprain of unspecified site of right knee, initial encounter Medications: Discontinued azithromycin Discontinued Reason: Patient Completed Course For 250 mg dose pack: take 500 mg today (day 1), then 250 mg for 4 days (days 2-5) PO 6 tabs 0RF ondansetron Discontinued Reason: Doctor's Order 4 mg PO Q8H PRN 20 tabs 0RF nausea and vomiting
== END 2024-12-01 09:29 | disposition home or self-care (01) ==
LOC: HO.HMCSH 08:54
PROVIDERS: PCP Internal Medicine; Visit Provider Internal Medicine
DX: R00.2 Palpitations (principal); Z00.00 Encounter for general adult medical examination without abnormal findings

== ENCOUNTER → 2024-12-01 08:54 | Outpatient (BNVA) | payer BC, SELFPAY | PROVIDERS: PCP Internal Medicine; Visit Provider Internal Medicine ==

== ENCOUNTER 2025-01-15 09:11 | Outpatient (REF) | payer BC, SELFPAY ==
--- NOTE | ~2025-01-15 | XR_ITS ---
EXAMINATION: XR KNEE, RIGHT CLINICAL INFORMATION: S83.91XA - Sprain of unspecified site of right knee, initial encounter COMPARISON: None available. TECHNIQUE: Four views of the right knee. FINDINGS: Articular surface sclerosis and the medial tibial plateau. Asymmetric joint space narrowing involving mostly the medial compartment. No acute cortical disruption or malalignment. No suprapatellar bursa joint effusion. No lytic lesion. XR/XR knee RT 4V IMPRESSION: Medial compartment osteoarthrosis, mild to moderate, right knee. Electronically signed by: Mandeep Blackman MD 01/18/2025 08:32 AM EDT
[2025-01-15 10:56] LABS: Cholesterol 183 mg/dL (<200); HDL Cholesterol 57 mg/dL (>40); LDL Cholesterol Calculated 111 mg/dL (<100); Triglycerides 77 mg/dL (<150)
== END 2025-01-15 09:12 | disposition home or self-care (01) ==
LOC: HO.HMGCX 09:11
PROVIDERS: PCP Internal Medicine; Referring Provider Physician Assistant Medical; Visit Provider Internal Medicine
DX: S83.91XD Sprain of unspecified site of right knee, subsequent encounter (principal); Z00.00 Encounter for general adult medical examination without abnormal findings; Z13.6 Encounter for screening for cardiovascular disorders
CPT/HCPCS: 36415; 73564; 80061

== ENCOUNTER → 2025-01-15 09:18 | Outpatient (BNV) | payer BC, SELFPAY | PROVIDERS: PCP Internal Medicine; Referring Provider Physician Assistant Medical; Visit Provider Radiology Diagnostic Radiology | DX: M17.11 Unilateral primary osteoarthritis, right knee (principal) | CPT/HCPCS: 73564 ==

== ENCOUNTER → 2025-02-03 09:00 | Outpatient (REF) | payer BC, SELFPAY ==
--- OUTSIDE RECORDS SUMMARY | 2025-02-03 09:30 | XMS_ITS | Patient Health Record ---
Author Organization [facility] Address [address] [place] [address] Care Team Providers Care Slurry Man Name Role Phone Freddy (RETIRED) Alexandre YU Primary Care Provid er Unavailable Alexandre Arambula Unavailable [phone] Reason For Referral No Information Plan Of Treatment No Information Insurance Providers Payer Name Payer Address Payer Phone Subscriber Number Group Number Insured Name Patient Relationship to Insured Coverage Start Date Coverage End Date [facility] [employer] CLAIMS [address] [place] [address] [id number] RAVI ABEBE Self - patient is the insured
--- OUTSIDE RECORDS SUMMARY | 2025-02-03 09:30 | XMS_ITS ---
Author Organization [facility] Address [address] [place] [address] Care Team Providers Care Defective Cigarette Slitter Name Role Phone Freddy (RETIRED) Alexandre YU Primary Care Provid er Unavailable Alexandre Arambula Unavailable [phone] REASON FOR VISIT Patient presents today for a COLON SCREENING Encounters Encounter Location Date Provider Diagnosis [facility] [address] [place] [id number] 01/15/2024 Alexandre Arambula Plan Of Treatment No Information Progress Notes * RAVI DOVERDOB:[birth year] (49 yo F)Acc No.[id number]:01/15/2024 Progress Notes Patient:?RAVI DOVER Provider:?Alexandre Arambula MD :1975???Age:48 Y???Sex:Female D ate:01/15/2024 Address:[address] [place], [place] [id number] Pcp:Alexandre Hayes (RETIRE D), DO Subjective: * Chief Complaints: * ???1. Patient presents today for a COLON SCREENING. * Medical History:? Objective: * Vitals:? Assessment: Plan: * Treatment: * * The named appointment provid er may or may not be the originator of this progress note, and it is not deemed complete until electronically signed by the appointment provider. Sign off status: Pending * Provider:?Alexandre Arambula MD Date:? 024 Generated for Williams elizondo/Maribel/eTransmitting on:?02/03/2025 09:30 AM EDT
--- OUTSIDE RECORDS SUMMARY | 2025-02-03 09:30 | XMS_ITS ---
Author Organization [facility] Address [address] [place] [address] Care Team Providers Care Milling Machine Operator Gear Name Role Phone Freddy (RETIRED) Alexandre YU Primary Care Provid er Unavailable Alexandre Arambula Unavailable [phone] REASON FOR VISIT cancel OV Encounters Encounter Location Date Provider Diagnosis [facility] [address] [place] [address] 01/13/2024 Alexandre Arambula Plan Of Treatment No Information Progress Notes * RAVI DOVERDOB:[birth year] (48 yo F)Acc No.[id number]:01/13/2024 Patient:?NÉSTOR DOVERJULIO CESAR :1975???Age:48 Y???Sex:Female Address:[address] [place] [address] [place], [address] * true * Date:? Generated for Williams elizondo/Maribel/eTransmitting on:?02/03/2025 09:30 AM EDT
== END ==
LOC: HO.CARD 09:00
PROVIDERS: PCP Internal Medicine; Visit Provider Internal Medicine Cardiovascular Disease
DX: R00.2 Palpitations (principal)
CPT/HCPCS: 93242

== ENCOUNTER → 2025-02-03 09:03 | Outpatient (BNV) | payer BC, SELFPAY | PROVIDERS: PCP Internal Medicine; Visit Provider Internal Medicine | DX: R07.9 Chest pain, unspecified (principal); R00.2 Palpitations | CPT/HCPCS: 93244 ==

== ENCOUNTER 2025-03-29 10:37 | Outpatient (AMB) | payer BC, SELFPAY ==
[2025-03-29 11:30] VITALS: BP 114/64; PULSE 69; BMI 26.2
--- NOTE | 2025-03-29 11:30 | A.OFFVIS_ITS ---
Vital Signs 03/29/25 11:30 Height 5 ft 1 in Weight 138 lb 14.259 oz BMI 26.2 BP 114/64 Blood Pressure Location Lt brachial Position Sitting Pulse 69 Pulse Source Pulse Oximeter Intake Visit Reasons: f/up-holter 02/03 Intake Note: f/up-holter Certified Ophthalmic Surgical Assistant Required: No Accompanied by: Self / Same As Patient Allergies amoxicillin [From AMOXIL] Allergy (Intermediate, Verified 12/01/24 09:38) RASH Medication List - Last Reconciled 03/29/25 by Johnathan Pulido MD cholecalciferol (vitamin D3) 25 mcg PO DAILY krill oil mg PO multivitamin 1 tab PO DAILY HPI Comments Details: 49-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 She was seen many years ago for arm discomfort and workup was normal. She has been experiencing some palpitations off and on. She is saying she has been going through some menstrual changes and is reaching menopause. She also had some iron-deficiency anemia for which she was on iron supplementation but recent iron studies appear to be normal. At times she noticed her heart to be racing but when she checks her heart rate is in 90s. She has never had documented tachycardia. Occasionally while exercising she feels as if the heart suddenly skips a beat and I think she is describing some PACs or PVCs. No syncope. She also noticed that when she is drinking tea she gets more palpitations her caffeine intake definitely affects the palpitations and she has stopped drinking BELINDA and that who has definitely helped her. TSH is normal. Not anemic. 03/29/2025: She underwent Holter monitor which did not show any significant arrhythmia. She is saying that she has been doing well. She is perimenopausal at this stage and has not had any menstruation for last 3 months. She has been exercising more regularly and has no exertional issues. [facility] Medical History Skin lesion of lower extremity Surgical History History of colonoscopy with polypectomy (05/19/24) History of breast biopsy (~10/2015) Family History Mother Cervical cancer Social History Alcohol intake: never Patient Tobacco Use Status: Never used Tobacco Review of Systems Const Denies chills, Denies fatigue, Denies fever(s), Denies frequent falls, Denies weakness, Denies weight gain and Denies weight loss ENT Denies dizziness Card Denies chest pain, Denies leg edema, Denies lightheadedness, Denies palpitations, Denies dyspnea and Denies dyspnea on exertion Resp Denies cough, Denies dyspnea and Denies dyspnea on exertion GI Denies hematochezia Musc Denies abnormal gait, Denies muscle weakness, Denies numbness, Denies radiating pain into limb and Denies tingling Neuro Denies abnormal gait, Denies dizziness, Denies frequent falls, Denies numbness, Denies tingling and Denies weakness Endo Denies fatigue and Denies palpitations Physical Exam Vital Signs: Last Vital Signs Pulse 69 03/29/25 11:30 BP 114/64 03/29/25 11:30 BMI result Body Mass Index 26.2 GENERAL APPEARANCE: in no acute distress, pleasant. NECK: no carotid bruit, no jugular venous distention. SKIN: no suspicious lesions, warm and dry. HEART: no murmurs, regular rate and rhythm. LUNGS: clear to auscultation bilaterally. ABDOMEN: soft, nontender. EXTREMITIES: no edema. PERIPHERAL PULSES: equal. NEUROLOGIC: No gross deficits, AAO X 3 Assessment & Plan Assessment & Plan (1) Palpitations: Code(s): R00.2 - Palpitations Category: Medical Plan Pleasant 49-year-old female who is here for assessment of palpitations. She underwent testing in the past which was normal. Recent Holter monitor also did not show any significant arrhythmia. She also has been feeling better. Symptoms can be related to menopause. I have advised her to buy a [employer] device and monitor her heart rhythm. Her symptoms are quite unpredictable and infrequent. With Kardia she can record her on heart rhythm and can forward the strips to us. No further workup currently. Thank you for allowing me to participate in the care of your patient. Please feel free to contact me if you have any questions. Coding Level of Care Code Est Pt Level 4 (30399) Diagnoses Palpitations R00.2
== END 2025-03-29 11:52 | disposition home or self-care (01) ==
LOC: HO.HCS 10:38
PROVIDERS: PCP Internal Medicine; Visit Provider Internal Medicine Cardiovascular Disease
DX: R00.2 Palpitations (principal)
CPT/HCPCS: 99214

== ENCOUNTER 2025-07-17 08:46 | Outpatient (REF) | payer BC, SELFPAY ==
--- OUTSIDE RECORDS SUMMARY | 2025-07-17 08:48 | XMS_ITS | Clinical Summary ---
Author Organization [facility] Address [address] [address] Phone Care Team Providers Care Burglar Alarm Superintendent Name Role Phone Alexandre Hayes DO Primary Care Provider Allergies Active Allergy Reactions Criticality Noted Date Comments Amoxicillin Hives,Rash Low 10/02/2018 Other 10/30/2019 seasonal Medications FA/mv,Ca,iron,m in/lycopene/lut (MULTIVITAL ORAL) Take by mouth. Active cholecalciferol , vitamin D3, (VITAMIN D3 ORAL) Take by mouth. Active omega 4-ecb-lef-fish oil 1,000 mg (120 mg-180 mg) Cap Take 1 capsule by mouth daily. Active iron, ferronyl,-vitam in C (VITRON-C) 65 mg iron- 125 mg TbEC Take 1 tablet by mouth daily. 09/06/2023 Active biotin 1 mg tablet Take 1,000 mcg by mouth 3 (three) times a day. Active Active Problems Problem Noted Date Diagnosed Date Fibroid uterus 11/05/2019 Overview (09/08/2020): Known uterine fibroids, 7-8 week size on exam 2018 and 2019; US 07/2020 shows a 3 cm fibroid, 1 cm fibroid, and another less than 1 cm. Assessment & Plan (01/07/2024 8:39 AM EDT): Her ultrasound from yesterday shows that the dominant fibroid is the same size if not somewhat smaller compared to previous films. She also had a least one of the small fibroid. The remainder of the ultrasound was essentially unremarkable. Assessment & Plan (09/08/2020 10:12 AM EST): Expectant management as no significant sxs Immunizations Immunization Administration Dates Next Due COVID-19 (Pre-08/19) Pfizer Vaccine, mRNA, PF 02/01/2021 Influenza Quadrivalent MDCK Preservative Free IM 08/16/2021 Influenza Quadrivalent Prese rvative Free IM 08/01/2022,08/10/2020 Influenza Quadrivalent w/ Preservative IM 08/19/2019,08/12/2018,08/20/2017,2015 Family History Medical History Relation Comments Kidney disease Father Lung disease Father Throat cancer Maternal Grandfather Heart disease Maternal Grandmother [place] Cervical cancer Mother Relation Status Comments Father Maternal Grandfather Maternal Grandmother (Age 73) Mother (Age 53) Paternal Grandfather Paternal Grandmother Social History Tobacco Use Types Packs/Day Years Used Date Smoking Tobacco: Never Smokeless Tobacco: Never Alcohol Use Standard Drinks/Week Comments Never 0 (1 standard drink = 0.6 oz pur e alcohol) Education Answer Date Recorded Are you interested in more education? Not on iván e 02/22/2023 Are you concerned about learning? Not on file 02/22/2023 No 02/22/2023 No 02/22/2023 Digital Access Answer Date Recorded No 03/19/2023 No 03/19/2023 Reliable internet access at home? Not on file 03/19/2023 Device with a working camera? 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 Not on file N ot on file Last Filed Vital Signs Vital Sign Reading Time Taken Comments Blood Pressure 108/64 01/29/2025 9:13 AM EDT Pulse - - Temperature - - Respiratory Rate - - Oxygen Saturation - - Inhaled Oxygen Concentration - - Weight 62.1 kg (137 lb) 01/29/2025 9:13 AM EDT Height 149.9 cm (4' 11.02 ) 01/29/2025 9:13 AM E DT Body Mass Index 27.66 01/29/2025 9:13 AM EDT Plan of Treatment Health Maintenance Due Date Last Done Comments Adult Td,Tdap Booster 1975 LIPID PANEL 1975 DEPRESSION SCREENING 1987 HEPATITIS C SCREENING 1993 HIV ONE-TIME SCREENING (18-65 YEARS) 1993 SCREENING FOR DIABETES 2010 COLOGUARD 2020 COLONOSCOPY 2020 COLORECTAL CANCER SCREENING 2020 FIT TEST 2020 FOBT 2020 SIGMOIDOSCOPY 2020 VIRTUAL COLONOSCOPY 2020 PNEUMOCOCCAL VACCINES (50+ years) (1 of 1 - PCV) 2025 ZOSTER VACCINES (1 of 2) 2025 INFLUENZA VACCINE (#1) 2025 , 08/01/2022, 08/16/2021, Additional history exists COVID-19 VACCINE (2024- season) 2025 09/24/2021, 02/22/2021, 02/01/2021 MAMMOGRAM 01/29/2027 01/29/2025, 07/0 05/2024, 04/22/2023, Additional history exists PAP SMEAR 01/29/2030 01/29/2025, 07/2 06/2020, 05/25/2020 SMOKING STATUS SCREENING (Once After 26 Yrs) Completed 01/29/2025 HEPATITIS A VACCINES Aged Out No long er eligible based on patient's age to complete this topic HIB VACCINES Aged Out No longer eligi ble based on patient's age to complete this topic MENINGOCOCCAL VACCINES (ACWY) Aged Out No longer eligible based on patient's age to complete this topic MENINGOCOCCAL VACCINES (B) Aged Out N o longer eligible based on patient's age to complete this topic Medical Devices Not on file Procedures Procedure Name Priority Date/Time Associated Diagnosis Comments BI MAMMOGRAM SCREENING (BILATERAL) Routine 01/29/2025 9:49 AM EDT Breast cancer screening by mammogram PAP TEST Routine 01/29/2025 12:00 AM EDT from Last 3 Months or Most Recently Relevant to Health Maintenance Results * Pap Test (01/29/2025 12:00 AM EDT) 01/29/2025 02/01/2025 9:5 4 AM EDT Narrative SEE NARRATIVE - 02/04/2025 1:35 PM EDT [address] [address] Kiln Remover: Anselmo Hahn MD [facility] Cytology Report FINAL DIAGNOSIS A. PAP SMEAR (THIN PREP) CE: SPECIMEN ADEQUACY: Satisfactory for evaluation; transformation zone present. INTERPRETATION: NEGATIVE FOR INTRAEPITHELIAL LESION OR MALIGNANCY. This specimen was analyzed by the automated ThinPrep Imaging System ([facility] and the selected conn were reviewed by a conveyor system dispatcher. Electronically Signed Out By: JOSE RAUL Mcdaniel(ASCP) The Pap test is a screening test primarily for squamous cancers and precursors and has associated false-negative and false-positive results. New technologies such as liquid-based preparations may decrease but will not eliminate all false-negative results. Regular sampling and follow-up of unexplained clinical signs and symptoms are recommended to minimize false negative results. PROCEDURES/ADDENDA HPV Testing (Requested) Ordered Date: 02/01/2025 A. PAP SMEAR (THIN PREP) CE: High-risk HPV Panel w/ extended genotyping NEG HPV 16-NEG HPV 18-NEG HPV 45-NEG HPV 33/58-NEG HPV 31-NEG HPV 56/59/66-NEG HPV 51-NEG HPV 52-NEG HPV 35/39/68-NEG Performed by real-time polymerase chain reaction (PCR) at [facility], [address] [place] [address] using the FDA-approved BD Onclarity HPV Assay with extended genotyping. Uses of the assay in scenarios other than those approved by the FDA should be considered off-label use. The accuracy and precision of this test for all other off-label specimen sources has been verified in the Cytopathology Laboratory of the [facility] and has not been cleared or approved by the U.S. Food and Drug Administration. Clinical correlation is advised. The assay assesses the E6/E7 DNA target and utilizes human beta globin as an internal control. Cytology and HPV testing are screening assays and should not be used as the sole means of detecting cancer. False-positives and false-negatives can occur. CLINICAL HISTORY Date of Last Menstrual Period: 12-25-2024 Other Clinical Conditions: Screening Pap SPECIMEN SOURCE A: PAP SMEAR (THIN PREP) CE Patient Name: RAVI DOVER : 1975 (Age: 49) Sex: F Institution: [facility] Location: [facility] Date of Collection: 01/29/2025 Date of Reported: 02/04/2025 13:35 Results to: Joés Nolasco MD, BS José Nolasco MD CYTOLOGY ORDERABLES Final Res ult SEE NARRATIVE * MAMMOGRAPHY FOR RESULT ENTRY ONLY (05/04/2024 10:15 AM EDT) Alexandre Hayes DO HEALTH MAINTENANCE Final Res ult from Last 3 Months or Most Recently Relevant to Health Maintenance [place] [address] [facility] Member Subscriber Plan / Payer (Ef fective 2023-Present) Name:Ravi Dover Relation to Subscriber:Spouse Name:MARK DUNN Gris Date of :1969 (Home) Address: [address] [place] [address] Payer ID:[id number] (NAIC) Type:O Address: [address] [place], [place] [facility] Care Teams Burglar Alarm Superintendent Relationship Specialty Start Date End Date Alexandre Hayes DO [address] [place] [address] [place] [id number] PCP - General Internal Medicine 08/11/18 Additional Source Comments The information contained in this document represents components of the legal health record. It is not the complete legal health record.[facility]
[2025-07-17 10:18] LABS: Hematocrit 39.7 % (37.0-47.0); Hemoglobin 13.3 g/dl (12.0-16.0); Mean Corpuscular HGB Conc 33.5 g/dl (31.0-35.0); Mean Corpuscular Hemoglobin 29.7 pg (27.0-33.0); Mean Corpuscular Volume 88.6 fL (80.0-98.0); NRBC Abs Auto 0.000 X10*3/uL (0.0-0.012); NRBC Pct Auto 0.0 /100WBC (0.0-0.2); Platelet Count 256 X10*3/uL (160-400); Red Blood Count 4.48 X10*6/uL (4.20-5.50); White Blood Count 7.9 X10*3/uL (4.8-10.8)
[2025-07-17 10:42] LABS: Appearance Urine Clear; Glucose Urine UA Negative (Negative); PH 7.5 (5.0-9.0); Specific Gravity - Urine 1.010 (1.005-1.025); UMIC TRIGGER UA YES
[2025-07-17 11:14] LABS: Alanine Aminotransferase 27 U/L (0-31); Albumin Level 4.6 g/dL (3.5-5.0); Alkaline Phosphatase 80 U/L (39-117); Anion Gap 12 (12-20); Aspartate Amino Transferase 33 U/L (5-31); Blood Urea Nitrogen 9 mg/dL (9-16); Calcium 9.4 mg/dL (8.4-10.2); Carbon Dioxide 28 mmol/L (22-29); Chloride 104 mmol/L (96-108); Cholesterol 179 mg/dL (<200); Estimated Glomerular Filt Rate > 60; HDL Cholesterol 54 mg/dL (>40); Potassium 3.8 mmol/L (3.3-5.1); Sodium 140 mmol/L (135-145); Total Protein 8.0 g/dL (6.5-8.0); Triglycerides 92 mg/dL (<150)
[2025-07-17 11:31] LABS: Thyroid Stimulating Hormone 1.25 uIU/mL (0.32-4.0)
== END 2025-07-17 08:47 | disposition home or self-care (01) ==
LOC: HO.LAB 08:46
PROVIDERS: PCP Internal Medicine; Visit Provider Internal Medicine
DX: F41.9 Anxiety disorder, unspecified (principal); Z13.6 Encounter for screening for cardiovascular disorders
CPT/HCPCS: 36415; 80048; 80061; 80076; 81001; 84443; 85027

== ENCOUNTER 2025-07-20 10:08 | Outpatient (AMB) | payer BC, SELFPAY ==
[2025-07-20 10:09] VITALS: BP 118/64; PULSE 64; RESP 16; TEMP 36; O2SAT 99; BMI 26.1
--- NOTE | 2025-07-20 10:09 | A.OFFPC_ITS ---
Vital Signs 07/20/25 10:09 Height 5 ft 1 in Weight 138 lb 6 oz BMI 26.1 BP 118/64 Blood Pressure Location Lt brachial Position Sitting Respiration 16 Pulse 64 Pulse Source Pulse Oximeter Temp 96.8 F Temp Source Temporal Artery Scan Pulse Oximetry (%) 99 Intake Visit Reasons: Follow up - see comments Charter Driver Required: No Accompanied by: Self / Same As Patient Allergies amoxicillin (From AMOXIL) Allergy (Intermediate, Verified 07/20/25 10:25) RASH Medication List - Last Reconciled 07/20/25 by Elle Wheeler PA-C cholecalciferol (vitamin D3) 25 mcg PO DAILY krill oil mg PO multivitamin 1 tab PO DAILY phytonadione (vitamin K1) 5 mg PO DAILY Tobacco use date assessed: 07/20/25 Dental Screening Dental Screen Date: 07/20/25 Did you have a dental visit in the last 12 months?: Yes HPI Follow up - see comments HPI Details The patient is a 50-year-old female presenting for a follow-up visit to review blood work results and manage chronic conditions. The patient has a history of hyperlipidemia, with recent blood work showing a decrease in total cholesterol from 183 mg/dL to 179 mg/dL and LDL cholesterol from 111 mg/dL to 107 mg/dL. However, triglycerides increased from 77 mg/dL to 92 mg/dL, and HDL cholesterol decreased from 57 mg/dL to 54 mg/dL. The patient is advised to focus on dietary modifications and exercise to manage cholesterol levels. The patient is identified as prediabetic with an A1c of 5.9%, up from a previous 5.2%. Dietary changes are recommended to prevent progression to diabetes. The patient reports a history of elevated liver enzymes, with AST currently two points above normal. A mild fatty liver was noted on a CT scan in 2022, likely related to dietary habits. The patient is advised to continue monitoring liver function and make dietary adjustments. The patient has a history of kidney stones, but current kidney function tests are normal. No current symptoms related to kidney stones are reported. The patient has medial compartment osteoarthritis of the right knee, confirmed by an x-ray in December. Physical therapy is recommended to manage symptoms and prevent progression. Social History - Exercise: Engages in yoga regularly fo r the past 10 years - Diet: Advised to modify diet to manage cholesterol and liver health [facility], [facility] Medical History (Updated 07/20/25 @ 11:54 by Elle Wheeler PA-C) Preventative health care Osteoarthritis of right knee Elevated liver enzymes Prediabetes Hyperlipidemia Skin lesion of lower extremity Surgical History History of colonoscopy with polypectomy (05/19/24) History of breast biopsy (~10/2015) Family History Mother Cervical cancer Social History Housing: House Alcohol intake: never Patient Tobacco Use Status: Never used Tobacco service: No Current occupational status: employed Cognitive needs: No Hearing needs: No Vision needs: Yes (contacts) Questionnaire PHQ-9 Over the last 2 weeks, how often have you been bothered by any of the following problems? 1. Little interest or pleasure in doing things: not at all 2. Feeling down, depressed, or hopeless: not at all 3. Trouble falling or staying asleep, or sleeping too much: not at all 4. Feeling tired or having little energy: not at all 5. Poor appetite or overeating: not at all 6. Feeling bad about yourself - or that you are a failure or have let yourself or your family down: not at all 7. Trouble concentrating on things, such as reading the newspaper or watching television: not at all 8. Moving or speaking so slowly that other people could have noticed. Or the opposite - being so fidgety or restless that you have been moving around a lot more than usual: not at all 9. Thoughts that you would be better off or of hurting yourself in some way: not at all Total score: 0 Depression Screening Interpretation: Negative Depression Screening Done: Yes 88288 - PHQ-9 Billing: Yes Source: Developed by Drs. Alexandre Perkins, Tresa Haskins, Patrick Huizar and colleagues, with an educational rudy from [employer]. AUDIT C Alcohol Use Questionnaire (AUDIT-C) 1. How often do you have a drink containing alcohol?: Never Total Score: 0 Score Reviewed/Action Taken: No FERMIN-7 AMB Questionnaire FERMIN-7 Date FERMIN - 7 assessed: 09/23/25 Feeling nervous, anxious, or on edge: 0 = Not at all Not being able to stop or control worryin = Not at all Worrying too much about different things: 0 = Not at all Trouble relaxin = Not at all Being so restless that it is hard to sit still: 0 = Not at all Becoming easily annoyed or irritable: 0 = Not at all Feeling afraid as if something awful might happen: 0 = Not at all Total FERMIN-7 score (0-4 normal; 5-9 mild; 10-14 moderate; 15-21 severe): 0 Source: Developed by Drs. Alexandre Perkins, Tresa Haskins, Patrick Huizar and colleagues, with an educational rudy from [employer]. FERMIN-7 Assessment Billing FERMIN-7 Assessment Tool: FERMIN-7 Assessment 83161 Review of Systems Const Details: - Cardiovascular: Reports palpitations during exercise. Denies chest pain or syncope. - Gastrointestinal: Denies abdominal pain or nausea. Reports history of kidney stones. - Musculoskeletal: Reports knee pain with activity. Denies leg swelling. All systems reviewed & are unremarkable except as noted in HPI and below Physical exam (Primary Care) Vital Signs: Last Vital Signs Temp 96.8 F 07/20/25 10:09 Pulse 64 07/20/25 10:09 Resp 16 07/20/25 10:09 BP 118/64 07/20/25 10:09 Pulse Ox 99 07/20/25 10:09 Care Plan Goal for BP management: <140/90 at Goal BMI result Body Mass Index 26.1 BMI Assessment/Plan discussion: High BMI High, discussed plan: lifestyle, weight reduction, dietary, physical activity, alcohol moderation and other Tobacco/Smoking Status: Tobacco use Status Tobacco use date assessed 07/20/25 07/20/25 10:20 Patient Tobacco Use Status Never used Tobacco 07/20/25 10:20 PHQ-9: PHQ-9 Score PHQ-9: Total score 0 07/20/25 10:26 Depression Screening Interpretation: Negative Const Other: Appearance: Alert. Oriented X3. No acute distress. Head: Normal external exam. Normocephalic. Atraumatic. Eyes: Pupils are equal, round, and reactive to light. Extraocular movements intact. Conjunctiva and sclera normal. Eyelids normal. Ears: External auditory canal normal. Tympanic membranes normal. Throat: Pharynx normal. Uvula midline. Moist mucous membranes. Neck: Normal inspection. Neck supple. Full range of motion. No adenopathy. Thyroid Normal. No meningeal signs. No neck mass noted. Cardiovascular: Normal heart rate and rhythm. Heart sound normal. No murmurs noted. Pulses normal throughout. Respiratory: No respiratory distress. Painless inspiration. Breath sounds normal. No wheezes/rales/rhonchi noted. No accessory muscle usage noted or decreased air movement noted. Abdomen: Soft and nontender. No distention noted. No organomegaly noted. No visible injury noted. Back: No costovertebral angle tenderness. Full range of motion noted. Skin: Skin warm and dry. Normal skin color. Normal skin turgor. No rashes /lesions/lacerations noted. Extremities: No lower extremity edema. Extremities exhibit normal range of motion. Extremities nontender. Neuro: Oriented X 3. No motor deficit. No sensory deficit. Reflexes normal. Office Procedures Flu Questionnaire Does the patient have a severe egg allergy?: No Does the patient have severe life threatening allergies?: No Does the patient have a fever or illness today?: No Has the patient ever had Guillain-[place] Syndrome?: No Has the patient ever had any past reaction to a flu shot?: No Results AMB Hemoglobin A1c 2 AMB Hemoglobin A1c 5.9 % Last Edit by Bethanie Ponce CMA on 07/20/25 10:4 9 Immunizations Fluarix [id number] (PF) 45 mcg (15 mcg x 3)/0.5 mL IM syringe Performing Provider: Elle Wheeler PA-C [facility] [place] [facility] Documented (not given) by: Bethanie Ponce CMA on 07/20/25 10:22 Reason Not Given: Patient Refused Results Reviewed Results Reviewed: - Labs: A1c 5.9% indicating prediabetes - Labs: Total cholesterol decreased to 179 mg/dL, LDL decreased to 107 mg/dL, triglycerides increased to 92 mg/dL, HDL decreased to 54 mg/dL - Imaging: CT scan in 2022 showed mild fatty liver Coding Level of Care Code Est Pt Level 4 (69066) Complex EM visit Add On G2211 Diagnoses Hyperlipidemia E78.5 Prediabetes R73.03 Elevated liver enzymes R74.8 Osteoarthritis of right knee M17.[address] [facility] health care Z00.00 Additional Codes PHQ-9 - 93367 - PHQ-9 Billing: Yes ([id number]) FERMIN-7 Assessment Billing - FERMIN-7 Assessment Tool: FERMIN-7 Assessment 18189 ([id number]) Assessment & Plan Assessment & Plan (1) Hyperlipidemia: Code(s): E78.5 - Hyperlipidemia, unspecified Category: Medical Plan: The patient is advised to focus on dietary modifications and regular exercise to manage cholesterol levels. A follow-up in six months is recommended to reassess lipid levels. (2) Prediabetes: Code(s): R73.03 - Prediabetes Category: Medical Plan: The patient is advised to implement dietary changes to prevent progression to diabetes. A follow-up in six months is recommended to monitor A1c levels. (3) Elevated liver enzymes: Code(s): R74.8 - Abnormal levels of other serum enzymes Category: Medical Plan: The patient is advised to monitor liver function and make dietary adjustments to address fatty liver disease. Information on dietary changes for liver health is provided. (4) Osteoarthritis of right knee: Code(s): M17.11 - Unilateral primary osteoarthritis, right knee Category: Medical Plan: Physical therapy is recommended to manage symptoms and prevent progression of osteoarthritis. Exercises to strengthen the knee and improve flexibility are suggested. (5) Preventative health care: Code(s): Z00.00 - Encounter for general adult medical examination without abnormal findings Category: Medical Plan: Routine blood work including A1c, vitamin D, vitamin B12, magnesium, and iron studies are ordered to monitor overall health. A follow-up appointment in six months is scheduled to review results and adjust care as needed. Plan Plan Patient was informed and verbally consented to the use of an ambient scribe for clinic note documentation during this visit. 1. Hyperlipidemia The patient is advised to focus on dietary modifications and regular exercise to manage cholesterol levels. A follow-up in six months is recommended to reassess lipid levels. 2. Prediabetes The patient is advised to implement dietary changes to prevent progression to diabetes. A follow-up in six months is recommended to monitor A1c levels. 3. Elevated Liver Enzymes The patient is advised to monitor liver function and make dietary adjustments to address fatty liver disease. Information on dietary changes for liver health is provided. 4. Medial Compartment Osteoarthritis Of The Right Knee Physical therapy is recommended to manage symptoms and prevent progression of osteoarthritis. Exercises to strengthen the knee and improve flexibility are suggested. 5. Preventative Care Routine blood work including A1c, vitamin D, vitamin B12, magnesium, and iron studies are ordered to monitor overall health. A follow-up appointment in six months is scheduled to review results and adjust care as needed. During the visit, I discussed with the patient the importance of dietary modifications and regular exercise to manage hyperlipidemia and prediabetes. We reviewed the slight elevation in liver enzymes and the presence of fatty liver, emphasizing the need for dietary changes to improve liver health. I recommended physical therapy for the management of osteoarthritis in the right knee and provided information on exercises to improve knee function. A follow-up in six months was advised to reassess the patient's condition and adjust the care plan as needed. Orders: Orders AMB Hemoglobin A1c Today Z13.9 - Encounter for screening, unspecified Vitamin B12 and Folate Today Z00.00 - Encounter for general adult medical examination without abnormal findings Vitamin D 25-OH Total Today Z00.00 - Encounter for general adult medical examination without abnormal findings CA echo transthoracic complete Today R00.2 - Palpitations CA stress test Today R00.2 - Palpitations Influenza [id number] Immunization Today Z23 - Encounter for immunization Magnesium Today Z00.00 - Encounter for general adult medical examination without abnormal findings NM cardiolite stress test Today I51.89 - Other ill-defined heart diseases Ferritin Today D64.9 - Anemia, unspecified IRON PROFILE Today D64.9 - Anemia, unspecified PT Evaluation and Treatment Today M17.11 - Unilateral primary osteoarthritis, right knee Medications: New iitkdrntqgli-Ny-tzpp-minerals 1 tab PO DAILY 90 tabs 3RF Patient Instructions: - Follow a healthy diet to manage cholesterol and blood sugar levels. - Engage in regular physical activity, including yoga and exercises for knee strength. - Monitor liver health by following dietary recommendations provided. - Schedule a follow-up appointment in six months to review blood work and health status.
--- OUTSIDE RECORDS SUMMARY | 2025-07-20 12:19 | XMS_ITS | Clinical Summary ---
Author Organization [facility] Address [address] [address] Phone Care Team Providers Care Stock Control Supervisor Name Role Phone Alexandre Hayes DO Primary Care Provider Allergies Active Allergy Reactions Criticality Noted Date Comments Amoxicillin Hives,Rash Low 10/02/2018 Other 10/30/2019 seasonal Medications FA/mv,Ca,iron,m in/lycopene/lut (MULTIVITAL ORAL) Take by mouth. Active cholecalciferol , vitamin D3, (VITAMIN D3 ORAL) Take by mouth. 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 PAP SMEAR (THIN PREP) CE: SPECIMEN ADEQUACY: Satisfactory for evaluation; transformation zone present. INTERPRETATION: NEGATIVE FOR INTRAEPITHELIAL LESION OR MALIGNANCY. This specimen was analyzed by the automated ThinPrep Imaging System (Web [employer] Rank.) and the selected conn were reviewed by a blanking press operator. Electronically Signed Out By: JOSE RAUL Mcdaniel(ASCP) [...] by real-time polymerase chain reaction (PCR) at [facility], [address] [place] [address] using the FDA-approved BD Onclarity HPV Assay with extended genotyping. Uses of the assay in scenarios other than those approved by the FDA should be considered off-label use. The accuracy and precision of this test for all other off-label specimen sources has been verified in the Cytopathology Laboratory of the [facility] and has not been cleared or approved [...] : 1975 (Age: 49) Sex: F Institution: [facility] Location: [facility] Date of Collection: 01/29/2025 Date of Reported: 02/04/2025 13:35 Results to: José Nolasco MD, BS José Nolasco MD CYTOLOGY ORDERABLES Final Res ult SEE NARRATIVE * MAMMOGRAPHY FOR RESULT ENTRY ONLY (05/04/2024 10:15 AM EDT) Alexandre Hayes DO HEALTH MAINTENANCE Final Res ult from Last 3 Months or Most Recently Relevant to Health Maintenance [place] [address] [facility] Member Subscriber Plan / Payer (Ef fective 2023-Present) Name:Ravi Dover Relation to Subscriber:Spouse Name:MARK DUNN Gris Date of :1969 (Home) Address: [address] [place] [address] Payer ID:[id number] (NAIC) Type:O Address: [address] [place], [place] [facility] Care Teams Stock Control Supervisor Relationship Specialty Start Date End Date Alexandre Hayes DO [address] [place] [address] [place] [id number] PCP - General Internal Medicine 08/11/18 Additional Source Comments The information contained in this document represents components of the legal health record. It is not the complete legal health record.[facility]
== END 2025-07-20 10:44 | disposition home or self-care (01) ==
LOC: HO.HMCSH 10:08
PROVIDERS: PCP Internal Medicine; Visit Provider Physician Assistant Medical
DX: E78.5 Hyperlipidemia, unspecified (principal); R73.03 Prediabetes; R74.8 Abnormal levels of other serum enzymes; M17.11 Unilateral primary osteoarthritis, right knee; Z00.00 Encounter for general adult medical examination without abnormal findings; Z23 Encounter for immunization; Z13.9 Encounter for screening, unspecified

== ENCOUNTER → 2025-07-20 10:08 | Outpatient (BNVA) | payer BC, SELFPAY | PROVIDERS: PCP Internal Medicine; Visit Provider Physician Assistant Medical | DX: Z00.00 Encounter for general adult medical examination without abnormal findings (principal); E78.5 Hyperlipidemia, unspecified; R73.03 Prediabetes; R74.8 Abnormal levels of other serum enzymes; M17.11 Unilateral primary osteoarthritis, right knee; I51.89 Other ill-defined heart diseases; Z87.442 Personal history of urinary calculi; Z28.21 Immunization not carried out because of patient refusal | CPT/HCPCS: 83036; 90471; 96127 ==

== ENCOUNTER 2025-08-05 09:04 | Outpatient (AMB) | payer BC, SELFPAY ==
--- NOTE | 2025-08-05 09:25 | AM.OFFVISNUR ---
Intake Visit Reasons: FLu Shot Allergies amoxicillin (From AMOXIL) Allergy (Intermediate, Verified 07/20/25 10:25) RASH Office Procedures Flu Questionnaire Does the patient have a severe egg allergy?: No Does the patient have severe life threatening allergies?: No Does the patient have a fever or illness today?: No Has the patient ever had Guillain-[place] Syndrome?: No Has the patient ever had any past reaction to a flu shot?: No Immunizations Fluarix [id number] (PF) 45 mcg (15 mcg x 3)/0.5 mL IM syringe Performing Provider: Elle Wheeler PA-C [facility] [place] Administered by: MADDIE Zimmer on 08/05/25 09:27 Dose Route Admin Location Dispensed Lot Number Expiration Date [facility] Manager Programming 0.5 mL IM Left Deltoid 0.5 mL [id number] 04/26/26 18018-953-70 [facility] VIS Given Date VIS Provided VIS Publication Date 08/05/25 Single Vaccine 24 Eligibility Eligibility Date Funding Source Not [facility] Eligible 08/05/25 Private Assessment & Plan Assessment & Plan Orders: Orders Influenza [id number] Immunization Today Z23 - Encounter for immunization Coding
== END 2025-08-05 09:18 | disposition home or self-care (01) ==
LOC: HO.HMCSH 09:04
PROVIDERS: PCP Physician Assistant Medical
DX: Z23 Encounter for immunization (principal)

== ENCOUNTER → 2025-08-05 09:04 | Outpatient (BNVA) | payer BC, SELFPAY | PROVIDERS: PCP Physician Assistant Medical | DX: Z23 Encounter for immunization (principal) | CPT/HCPCS: 90471; 90656 ==

== ENCOUNTER → 2025-08-17 07:59 | Outpatient (REF) | payer BC, SELFPAY ==
--- NOTE | 2025-08-17 08:01 | CA_ITS ---
Transthoracic Echocardiogram Patient (Last, First, Middle): Hector Clifford D Gender: F Date of : 1975 Age: 50 Procedure Date: 08/17/2025 Procedure Type: Transthoracic Echocardiogram Location: OP Height: 154.94 cm Weight: 62.6 kg BSA: 1.61 m2 Heart Rate: bpm BP: 118 / 64 mmHg Remote Sensing Research Scientist: GILBERT Referring MD: Elle Wheeler PA-C Stationary Boiler Fireman: Honorio Kay MD Symptoms: R00.2 - Palpitations Study Quality: Good ECG Rhythm: Sinus Conclusions: - Normal study Findings Left Ventricle Normal left ventricular size, thickness, and systolic function. The visually estimated ejection fraction is between 60-65%. Diastolic function is normal for age. Right Ventricle Normal right ventricular cavity size and systolic function. Atria Both atria are normal in size. There is no evidence of interatrial shunt. Aortic Valve Normal aortic valve structure and function. There is no aortic valve stenosis. There is no aortic valve regurgitation. Mitral Valve Normal mitral valve structure and function. There is trace mitral valve regurgitation. There is no mitral valve stenosis. Pulmonic Valve The pulmonic valve is likely normal. Tricuspid Valve Normal tricuspid valve structure. Tricuspid regurgitation envelope is inadequate for calculation of right ventricular systolic pressure. Normal right atrial pressure. Great Vessels All visible segments of the aorta are normal in size. The visualized portions of the pulmonary artery and branches are normal. Venous The inferior vena cava is normal in size and collapses greater than 50% with inspiration. Pericardium/Pleural There is no evidence of pericardial effusion. Prior Study Comparison No prior study available for comparison. Measurements 2D Linear Measurements IVSd: 0.81 0.6-0.9/0.6-1.0 cm LVIDd: 4.48 3.9-5.3/4.2-5.9 cm LVIDd Index: 2.78 2.4-3.2/2.2-3.1 cm/m2 LVIDs: 2.98 2.0-3.6 cm LVPWd: 0.84 0.7-1.1 cm LA Diam: 3.50 2.7-3.8/3.0-4.0 cm LAIDs Index: 2.17 1.5-2.3 cm/m2 LV Mass: 146.17 67-162/88-224 g LV Mass Index: 90.79 43-95/49-115 g/m2 LVOT Diam: 1.90 3.0+(-)1.3 cm 2D Systolic Function EF 4C: 65.60 >55% EF 2C: 59.80 >55% EF BiP: 61.70 >55% Mitral Valve MV Pk E: 0.78 MV PK A: 0.64 MV Decel Time: 209.00 E/A: 1.20 E'Lateral: 14.40 E'Medial: 7.83 E/E' Med: 9.90 E/E' Lat: 5.40 PHT: 61.00 MVA PHT: 3.61 Decel Motley: 3.71 Aortic Valve AoV Pk Constantin: 1.31 AoV Mn Constantin: 0.93 AoV VTI: 0.32 AoV Pk Grad: 7.00 Aov Mn Grad: 4.00 NOREEN Cont.VTI: 2.10 LVOT LVOT Pk Constantin: 1.03 LVOT Mn Constantin: 0.71 LVOT VTI: 0.24 LVOT Pk Grad: 4.00 LVOT Mn Grad: 2.00 LVOT Diam: 1.90 LVOT Area: 2.84 Diastolic Function MV Pk E: 0.78 MV Pk A: 0.64 E/A: 1.20 E'Medial: 7.83 E/E' Med: 9.90 E' Laterial: 14.40 E/E' Lat: 5.40 Right Ventricle TAPSE (mm): 23.50 TVS' Constantin: 12.20 Tricuspid Valve RA Press: 3.00 Great Vessels Aorta Sinus of Valsalva: 2.89 2.0-3.[address] Ridge: 2.29 1.7-3.4 cm Ao Asc: 2.60 2.1-3.4 cm Ao Arch: 2.50 Pulmonary Veins Pulm Vein S/D 1.30 Updated in Other Vendor System with Status of Final Honorio Kay MD electronically signed on 08/17/2025 5:11:48 PM with status of Final
--- OUTSIDE RECORDS SUMMARY | 2025-08-17 08:02 | XMS_ITS | Clinical Summary ---
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 Active cholecalciferol , vitamin D3, (VITAMIN D3 ORAL) Take by mouth. 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 PAP SMEAR (THIN PREP) CE: SPECIMEN ADEQUACY: Satisfactory for evaluation; transformation zone present. INTERPRETATION: NEGATIVE FOR INTRAEPITHELIAL LESION OR MALIGNANCY. This specimen was analyzed by the automated ThinPrep Imaging System ([employer] and the selected conn were reviewed by a integrated marketing manager. Electronically Signed Out By: JOSE RAUL Mcdaniel(ASCP) [...] by real-time polymerase chain reaction (PCR) at [facility], [address] [place] [address], [place], [place] using the FDA-approved [employer] Onclarity HPV Assay with extended genotyping. Uses of the assay in scenarios other than those approved by the FDA should be considered off-label use. The accuracy and precision of this test for all other off-label specimen sources has been verified in the Cytopathology Laboratory of the [facility] and has not been cleared or approved [...] : 1975 (Age: 49) Sex: F Institution: [facility] Location: [facility] Date of Collection: 01/29/2025 Date of Reported: 02/04/2025 13:35 Results to: José Nolasco MD, BS [facility] Final Diagnosis A. PAP SMEAR (THIN PREP) CE: SPECIMEN ADEQUACY: Satisfactory for evaluation; transformation zone present. INTERPRETATION: NEGATIVE FOR INTRAEPITHELIAL LESION OR MALIGNANCY. This specimen was analyzed by the automated ThinPrep Imaging System ([employer] and the selected conn were reviewed by a integrated marketing manager. [facility] Results\Inter pretation A. PAP SMEAR (THIN PREP) CE: High-risk HPV Panel w/ extended genotyping NEG HPV 16-NEG HPV 18-NEG HPV 45-NEG HPV 33/58-NEG HPV 31-NEG HPV 56/59/66-NEG HPV 51-NEG HPV 52-NEG HPV 35/39/68-NEG Performed by real-time polymerase chain reaction (PCR) at [facility], [address] [place] [address] using the FDA-approved [employer] Onclarity HPV Assay with extended genotyping. Uses of the assay in scenarios other than those approved by the FDA should be considered off-label use. The accuracy and precision of this test for all other off-label specimen sources has been verified in the Cytopathology Laboratory of the [facility] and has not been cleared or approved by the U.S. Food and Drug Administration. Clinical correlation is advised. The assay assesses the E6/E7 DNA target and utilizes human beta globin as an internal control. Cytology and HPV testing are screening assays and should not be used as the sole means of detecting cancer. False-positives and false-negatives can occur. [facility] Conversion Type (Conversion Source) 01/29/2025 02/01/2025 9:54 AM EDT José Nolasco MD CYTOLOGY ORDERABLES Edited Re sult - Final [facility] [address] [place] [address] * MAMMOGRAPHY FOR RESULT ENTRY ONLY (05/04/2024 10:15 AM EDT) Alexandre Hayes DO HEALTH MAINTENANCE Final Res ult from Last 3 Months or Most Recently Relevant to Health Maintenance Insurance [facility] Care Teams Aircraft Seat Upholsterer Relationship Specialty Start Date End Date Alexandre Hayes DO [address] [place] [address] [place] [address] PCP - General Internal Medicine 08/11/18 Additional Source Comments The information contained in this document represents components of the legal health record. It is not the complete legal health record.[facility]
== END ==
LOC: HO.CARD 07:59
PROVIDERS: PCP Physician Assistant Medical; Visit Provider Physician Assistant Medical
DX: R00.2 Palpitations (principal)
CPT/HCPCS: 93306

== ENCOUNTER → 2025-08-17 08:01 | Outpatient (BNV) | payer BC, SELFPAY | PROVIDERS: PCP Physician Assistant Medical; Visit Provider Internal Medicine Cardiovascular Disease | DX: R00.2 Palpitations (principal) | CPT/HCPCS: 93306 ==

== ENCOUNTER → 2025-08-24 09:43 | Outpatient (REF) | payer BC, SELFPAY ==
--- NOTE | 2025-08-24 09:45 | CA_ITS ---
Acquisition Time: 2025-08-24 10:02:40 Total Exercise Time: 00:06:45 Test Indications: pal,Palpitations Medications: Protocol: ZOILA Max HR: 155 BPM 91% of Pred: 170 BPM Max BP: 140/54 mmHG Max Work Load: 8.1 METS Exercise stress test with exercise 6 mins 45 secs of Zoila Protocol, achieveing 91% MPHR, with reports of mild fatigue, no chest pain or palpitations, without any arrythmias, with normotensive response to exercise. Without any EKG changes meeting criteria for ischemia. In recovery, pt feeling back to baseline. Test reviewed with Dr. Reid. Referred By: Elle Wheeler Electronically Signed By: Henrique Junior
== END ==
LOC: HO.CARD 09:43
PROVIDERS: PCP Physician Assistant Medical; Visit Provider Physician Assistant Medical
DX: R00.2 Palpitations (principal)
CPT/HCPCS: 93017

== ENCOUNTER → 2025-08-24 09:45 | Outpatient (BNV) | payer BC, SELFPAY | PROVIDERS: PCP Physician Assistant Medical | DX: R00.2 Palpitations (principal); R53.83 Other fatigue | CPT/HCPCS: 93016; 93018 ==

== ENCOUNTER 2025-09-07 15:18 | Outpatient (AMB) | payer BC, SELFPAY ==
[2025-09-07 15:31] VITALS: BP 128/62; PULSE 80; RESP 14; TEMP 36.6; O2SAT 99; BMI 24.9
--- NOTE | 2025-09-07 15:31 | MHC.PC.OV ---
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: No Accompanied by: Self / Same As Patient Allergies amoxicillin (From AMOXIL) Allergy (Intermediate, Verified 09/07/25 16:21) RASH Medication List - Last Reconciled 09/07/25 by Elle Wheeler PA-C cholecalciferol (vitamin D3) 25 mcg PO DAILY doxycycline monohydrate 100 mg PO BID 21 days krill oil mg PO pfxinpmc-pdt-bglhhvl fumarate 15 mg iron 1 tab PO DAILY multivitamin 1 tab PO DAILY mupirocin 2% (Centany) 1 appl topical BID phytonadione (vitamin K1) 5 mg PO DAILY Tobacco use date assessed: 07/20/25 Dental Screening Dental Screen Date: 07/20/25 HPI Tic Bite HPI Details The patient is a 50-year-old female presenting for evaluation and management of a recent tick bite. She sustained a deer tick bite on Saturday while outside near her home and discovered it the next day, indicating it was on her for less than 24 hours. The patient has a history of prediabetes and was previously 140 pounds in October. She has been following a provided diet plan and has reduced snacking, resulting in a weight of 132 pounds at today's visit. There was a previous concern for fatty liver two years ago. Social History - Diet: The patient reports adhering to a diet plan and reducing snacking, which has resulted in weight loss. - Family Status: Patient's is doing okay but is not managing his health as he should. [facility] Medical History (Updated 09/07/25 @ 16:23 by Elle Wheeler PA-C) Tick bite History of mammogram (~05/13/25) Preventative health care Osteoarthritis of right knee Elevated liver enzymes Prediabetes Hyperlipidemia Skin lesion of lower extremity Surgical History History of colonoscopy with polypectomy (05/19/24) History of breast biopsy (~10/2015) Family History Mother Cervical cancer Social History Housing: House Alcohol intake: never Patient Tobacco Use Status: Never used Tobacco service: No Current occupational status: employed Cognitive needs: No Hearing needs: No Vision needs: Yes (contacts) Questionnaire PHQ-9 Over the last 2 weeks, how often have you been bothered by any of the following problems? 1. Little interest or pleasure in doing things: not at all 2. Feeling down, depressed, or hopeless: not at all 3. Trouble falling or staying asleep, or sleeping too much: not at all 4. Feeling tired or having little energy: not at all 5. Poor appetite or overeating: not at all 6. Feeling bad about yourself - or that you are a failure or have let yourself or your family down: not at all 7. Trouble concentrating on things, such as reading the newspaper or watching television: not at all 8. Moving or speaking so slowly that other people could have noticed. Or the opposite - being so fidgety or restless that you have been moving around a lot more than usual: not at all 9. Thoughts that you would be better off or of hurting yourself in some way: not at all Total score: 0 Depression Screening Interpretation: Negative Depression Screening Done: Yes 91815 - PHQ-9 Billing: Yes Source: Developed by Drs. Alexandre Perkins, Tresa Haskins, Patrick Huizar and colleagues, with an educational rudy from [employer]. Thrive Questionnaire Date Thrive assessed: 09/07/25 I am a: Patient What is your living situation today?: I have a steady place to live Within the past 12 months, did the food you bought not last and you didn't have the money to get more?: Never true Within the past 12 months, did you worry whether your food would run out before you got money to buy more?: Never true Do you have trouble paying for medicines?: No Do you have trouble getting transportation to medical appointments?: No Do you have trouble paying your heating and electricity bill?: No Do you have trouble taking care of your child, family member or friend?: No Do you have trouble with day-to-day activities such as bathing, preparing meals, shopping, managing finances, etc.?: No Are you currently unemployed and looking for a job?: No Are you interested in more education?: No Please select the resources that you would like help with: None THRIVE Score: 0 AUDIT C Alcohol Use Questionnaire (AUDIT-C) 1. How often do you have a drink containing alcohol?: Never 3. How often do you have six or more drinks on one occasion?: Never Total Score: 0 Score Reviewed/Action Taken: No FERMIN-7 AMB Questionnaire FERMIN-7 Date FERMIN - 7 assessed: 07/20/25 Feeling nervous, anxious, or on edge: 0 = Not at all Not being able to stop or control worryin = Not at all Worrying too much about different things: 0 = Not at all Trouble relaxin = Not at all Being so restless that it is hard to sit still: 0 = Not at all Becoming easily annoyed or irritable: 0 = Not at all Feeling afraid as if something awful might happen: 0 = Not at all Total FERMIN-7 score (0-4 normal; 5-9 mild; 10-14 moderate; 15-21 severe): 0 Source: Developed by Drs. Alexandre Perkins, Tresa Haskins, Patrick Huizar and colleagues, with an educational rudy from [employer]. FERMIN-7 Assessment Billing FERMIN-7 Assessment Tool: FERMIN-7 Assessment 97280 Review of Systems Const Details: - Constitutional: Reports feeling good with increased energy since losing weight. - Integumentary: Reports a recent tick bite. All systems reviewed & are unremarkable except as noted in HPI and below Physical exam (Primary Care) Vital Signs: Last Vital Signs Temp 97.9 F 09/07/25 15:31 Pulse 80 09/07/25 15:31 Resp 14 09/07/25 15:31 BP 128/62 09/07/25 15:31 Pulse Ox 99 09/07/25 15:31 Oxygen Delivery Method Room Air 09/07/25 15:31 Care Plan Goal for BP management: <140/90 at Goal BMI result Body Mass Index 24.9 Normal BMI Tobacco/Smoking Status: Tobacco use Status Tobacco use date assessed 07/20/25 09/07/25 15:40 Patient Tobacco Use Status Never used Tobacco 09/07/25 15:40 PHQ-9: PHQ-9 Score PHQ-9: Total score 0 09/07/25 15:40 Depression Screening Interpretation: Negative Thrive Assessment: Date of Thrive Assessment Date Thrive assessed 09/07/25 09/07/25 15:40 Const Other: Appearance: Alert. Oriented X3. No acute distress. Head: Normal external exam. Normocephalic. Atraumatic. Eyes: Pupils are equal, round, and reactive to light. Extraocular movements intact. Conjunctiva and sclera normal. Eyelids normal. Throat: Pharynx normal. Uvula midline. Moist mucous membranes. Neck: Normal inspection. Neck supple. Full range of motion. Cardiovascular: Normal heart rate and rhythm. Respiratory: No respiratory distress. Painless inspiration. Back: Full range of motion noted. Skin: Skin warm and dry. Normal skin color. Normal skin turgor. No rashes/lesions/lacerations noted. Tick bite healing well, no signs of infection. Extremities: Extremities exhibit normal range of motion. Coding Level of Care Code Est Pt Level 4 (60353) Complex EM visit Add On G2211 Diagnoses Tick bite W57.XXXA Prediabetes R73.03 Additional Codes FERMIN-7 Assessment Billing - FERMIN-7 Assessment Tool: FERMIN-7 Assessment 76792 ([id number]) PHQ-9 - 97124 - PHQ-9 Billing: Yes ([id number]) Assessment & Plan Assessment & Plan (1) Tick bite: Code(s): W57.XXXA - Bitten or stung by nonvenomous insect and other nonvenomous arthropods, initial encounter Category: Medical Plan: The patient sustained a deer tick bite which was attached for less than 24 hours. The bite site is healing well with no signs of infection or rash. For prophylaxis, the plan is for the patient to take a single 200 mg dose of doxycycline tonight. She is advised to continue using the topical antibiotic to prevent a local skin infection and to save the remaining oral doxycycline pills for potential future need after consultation. A Lyme disease test is ordered and she is instructed to have it done in one month (4-6 weeks post-bite). (2) Prediabetes: Code(s): R73.03 - Prediabetes Category: Medical Plan: The patient has successfully lost 8 pounds since October, with her weight decreasing from 140 lbs to 132 lbs. Her weight loss is attributed to adherence to a diet plan and reducing snacks. The expectation is that this weight loss will improve her prediabetic status and cholesterol levels. The plan is to continue with the current diet, and labs will be rechecked at the next follow-up in six months. Plan Plan Patient was informed and verbally consented to the use of an ambient scribe for clinic note documentation during this visit. 1. Prophylaxis For Lyme Disease The patient sustained a deer tick bite which was attached for less than 24 hours. The bite site is healing well with no signs of infection or rash. For prophylaxis, the plan is for the patient to take a single 200 mg dose of doxycycline tonight. She is advised to continue using the topical antibiotic to prevent a local skin infection and to save the remaining oral doxycycline pills for potential future need after consultation. A Lyme disease test is ordered and she is instructed to have it done in one month (4-6 weeks post-bite). 2. Prediabetes And Weight Management The patient has successfully lost 8 pounds since October, with her weight decreasing from 140 lbs to 132 lbs. Her weight loss is attributed to adherence to a diet plan and reducing snacks. The expectation is that this weight loss will improve her prediabetic status and cholesterol levels. The plan is to continue with the current diet, and labs will be rechecked at the next follow-up in six months. I discussed the management of the patient's recent tick bite, noting that since the tick was on her for less than 24 hours, a single prophylactic dose of doxycycline 200 mg tonight is recommended. I advised her to save the remaining prescription and to continue the topical antibiotic to prevent skin infection. We will screen for Lyme disease with a blood test in 4-6 weeks. I commended her on her successful weight loss of 8 pounds, from 140 to 132 pounds, since October by following the diet plan. I explained that this progress will likely improve her prediabetic status and cholesterol, which we will re-evaluate with blood work at her six-month follow-up. I told her to call if she needs to be seen sooner than her scheduled appointment. Patient Instructions: - Take two pills (200 mg total) of doxycycline tonight as a one-time dose for the tick bite. - Keep using the topical antibiotic cream on the bite to prevent a skin infection. - Save the rest of the doxycycline pills. If you think you have another tick bite in the future, please call the office. - In about one month (4 to 6 weeks from now), please go to the lab to have a blood test for Lyme disease. - You have done a great job losing weight. Continue to follow your diet plan. - Your next appointment is in about six months, but you should call us if you need to be seen sooner.
--- OUTSIDE RECORDS SUMMARY | 2025-09-07 17:00 | XMS_ITS | Clinical Summary ---
Author Organization [facility] Address [address] [employer] [address] [address] Phone Care Team Providers Care Mortar Maker Name Role Phone Alexandre Hayes DO Primary Care Provider Allergies Active Allergy Reactions Criticality Noted Date Comments Amoxicillin Hives,Rash Low 10/02/2018 Other 10/30/2019 seasonal Medications FA/mv,Ca,iron,m in/lycopene/lut (MULTIVITAL ORAL) Take by mouth. Active cholecalciferol , vitamin D3, (VITAMIN D3 ORAL) Take by mouth. 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 PAP SMEAR (THIN PREP) CE: SPECIMEN ADEQUACY: Satisfactory for evaluation; transformation zone present. INTERPRETATION: NEGATIVE FOR INTRAEPITHELIAL LESION OR MALIGNANCY. This specimen was analyzed by the automated ThinPrep Imaging System ([employer] and the selected conn were reviewed by a variety saw operator. Electronically Signed Out By: JOSE RAUL [...] by real-time polymerase chain reaction (PCR) at [facility], [address] [place] [address] using the FDA-approved [employer] Onclarity HPV Assay with extended genotyping. Uses of the assay in scenarios other than those approved by the FDA should be considered off-label use. The accuracy and precision of this test for all other off-label specimen sources has been verified in the Cytopathology Laboratory of the [facility] and has not been cleared or [...] : 1975 (Age: 49) Sex: F Institution: [facility] Location: [facility] Date of Collection: 01/29/2025 Date of Reported: 02/04/2025 13:35 Results to: José Nolasco MD, BS [facility] Final Diagnosis A. PAP SMEAR (THIN PREP) CE: SPECIMEN ADEQUACY: Satisfactory for evaluation; transformation zone present. INTERPRETATION: NEGATIVE FOR INTRAEPITHELIAL LESION OR MALIGNANCY. This specimen was analyzed by the automated ThinPrep Imaging System ([employer] and the selected conn were reviewed by a variety saw operator. [facility] Results\Inter pretation A. PAP SMEAR (THIN PREP) CE: High-risk HPV Panel w/ extended genotyping NEG HPV 16-NEG HPV 18-NEG HPV 45-NEG HPV 33/58-NEG HPV 31-NEG HPV 56/59/66-NEG HPV 51-NEG HPV 52-NEG HPV 35/39/68-NEG Performed by real-time polymerase chain reaction (PCR) at [facility], [address] [place] [address] using the FDA-approved [employer] Onclarity HPV Assay with extended genotyping. Uses of the assay in scenarios other than those approved by the FDA should be considered off-label use. The accuracy and precision of this test for all other off-label specimen sources has been verified in the Cytopathology Laboratory of the [facility] and has not been cleared or approved by the U.S. Food and Drug Administration. Clinical correlation is advised. The assay assesses the E6/E7 DNA target and utilizes human beta globin as an internal control. Cytology and HPV testing are screening assays and should not be used as the sole means of detecting cancer. False-positives and false-negatives can occur. [facility] Conversion Type (Conversion Source) 01/29/2025 02/01/2025 9:54 AM EDT José Nolasco MD CYTOLOGY ORDERABLES Edited Re sult - Final [facility] [address] [place] [address] * MAMMOGRAPHY FOR RESULT ENTRY ONLY (05/04/2024 10:15 AM EDT) Alexandre Hayes DO HEALTH MAINTENANCE Final Res ult from Last 3 Months or Most Recently Relevant to Health Maintenance Insurance [facility] Care Teams Mortar Maker Relationship Specialty Start Date End Date Alexandre Hayes DO [address] [place] [address] [place] [address] PCP - General Internal Medicine 08/11/18 Additional Source Comments The information contained in this document represents components of the legal health record. It is not the complete legal health record.[facility]
== END 2025-09-07 15:55 | disposition home or self-care (01) ==
LOC: HO.HMCSH 15:19
PROVIDERS: PCP Physician Assistant Medical; Visit Provider Physician Assistant Medical
DX: T63.481A Toxic effect of venom of other arthropod, accidental (unintentional), initial encounter (principal); R73.03 Prediabetes

== ENCOUNTER → 2025-09-07 15:18 | Outpatient (BNVA) | payer BC, SELFPAY | PROVIDERS: PCP Physician Assistant Medical; Visit Provider Physician Assistant Medical | DX: R73.03 Prediabetes (principal); T14.8XXA Other injury of unspecified body region, initial encounter; W57.XXXA Bitten or stung by nonvenomous insect and other nonvenomous arthropods, initial encounter; Y93.9 Activity, unspecified; Y92.9 Unspecified place or not applicable; Y99.9 Unspecified external cause status | CPT/HCPCS: 96127 ==

== ENCOUNTER 2025-10-15 09:20 | Outpatient (REF) | payer BC, SELFPAY ==
--- OUTSIDE RECORDS SUMMARY | 2025-10-15 09:58 | XMS_ITS | Clinical Summary ---
Author Organization [facility] Address [address] [address] Phone Care Team Providers Care English Horn Player Name Role Phone Alexandre Hayes DO Primary Care Provider Allergies Active Allergy Reactions Criticality Noted Date Comments Amoxicillin Hives,Rash Low 10/02/2018 Other 10/30/2019 seasonal Medications FA/mv,Ca,iron,m in/lycopene/lut (MULTIVITAL ORAL) Take by mouth. Active cholecalciferol , vitamin D3, (VITAMIN D3 ORAL) Take by mouth. 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 PAP SMEAR (THIN PREP) CE: SPECIMEN ADEQUACY: Satisfactory for evaluation; transformation zone present. INTERPRETATION: NEGATIVE FOR INTRAEPITHELIAL LESION OR MALIGNANCY. This specimen was analyzed by the automated ThinPrep Imaging System ([employer] and the selected conn were reviewed by a outbound telemarketer. Electronically Signed Out By: JOSE RAUL Mcdaniel(ASCP) [...] by real-time polymerase chain reaction (PCR) at [facility], [address] [place] [address], [place], [place] using the FDA-approved mLED Onclarity HPV Assay with extended genotyping. Uses of the assay in scenarios other than those approved by the FDA should be considered off-label use. The accuracy and precision of this test for all other off-label specimen sources has been verified in the Cytopathology Laboratory of the [facility] and has not been cleared or [...] : 1975 (Age: 49) Sex: F Institution: [facility] Location: [facility] Date of Collection: 01/29/2025 Date of Reported: 02/04/2025 13:35 Results to: José Nolasco MD, BS [facility] Final Diagnosis A. PAP SMEAR (THIN PREP) CE: SPECIMEN ADEQUACY: Satisfactory for evaluation; transformation zone present. INTERPRETATION: NEGATIVE FOR INTRAEPITHELIAL LESION OR MALIGNANCY. This specimen was analyzed by the automated ThinPrep Imaging System ([employer] and the selected conn were reviewed by a outbound telemarketer. [facility] Results\Inter pretation A. PAP SMEAR (THIN PREP) CE: High-risk HPV Panel w/ extended genotyping NEG HPV 16-NEG HPV 18-NEG HPV 45-NEG HPV 33/58-NEG HPV 31-NEG HPV 56/59/66-NEG HPV 51-NEG HPV 52-NEG HPV 35/39/68-NEG Performed by real-time polymerase chain reaction (PCR) at [facility], [address] [place] [address] using the FDA-approved BD Onclarity HPV Assay with extended genotyping. Uses of the assay in scenarios other than those approved by the FDA should be considered off-label use. The accuracy and precision of this test for all other off-label specimen sources has been verified in the Cytopathology Laboratory of the [facility] and has not been cleared or approved by the U.S. Food and Drug Administration. Clinical correlation is advised. The assay assesses the E6/E7 DNA target and utilizes human beta globin as an internal control. Cytology and HPV testing are screening assays and should not be used as the sole means of detecting cancer. False-positives and false-negatives can occur. [facility] Conversion Type (Conversion Source) 01/29/2025 02/01/2025 9:54 AM EDT José Nolasco MD CYTOLOGY ORDERABLES Edited Re sult - Final [facility] [address] [place] [address] * MAMMOGRAPHY FOR RESULT ENTRY ONLY (05/04/2024 10:15 AM EDT) Alexandre Hayes DO HEALTH MAINTENANCE Final Res ult from Last 3 Months or Most Recently Relevant to Health Maintenance Insurance [facility] Member Subscriber Plan / Payer (Ef fective 2023-Present) Name:Ravi Dover Relation to Subscriber:Spouse Name:MARK DUNN Date of :1969 (Home) Address: [address] [place] [address] Payer ID:[id number] (NAIC) Type:O Address: [facility] [id number] [place] [id number] [facility] Care Teams English Horn Player Relationship Specialty Start Date End Date Alexandre Hayes DO [address] [place] [address] [place] [address] PCP - General Internal Medicine 08/11/18 Additional Source Comments The information contained in this document represents components of the legal health record. It is not the complete legal health record.[facility]
[2025-10-15 10:59] LABS: Iron 57 mcg/dL (30-160); Magnesium 1.9 mg/dL (1.6-2.6); Percent Iron Saturation 19 % (15-50); Total Iron Binding Capacity 299 mcg/dL (228-428); Unsaturated Iron Binding 242 ug/dL
[2025-10-15 11:29] LABS: Ferritin 143 ng/mL (10-250)
[2025-10-15 11:41] LABS: Folate > 20.0 ng/mL (> or = 4.0); Vitamin B12 688 pg/mL (200-900)
[2025-10-16 05:32] LABS: Lyme Abs Screen <0.90 index
== END 2025-10-15 09:21 | disposition home or self-care (01) ==
LOC: HO.HMGCLDS 09:20
PROVIDERS: PCP Internal Medicine; Visit Provider Physician Assistant Medical
DX: Z00.00 Encounter for general adult medical examination without abnormal findings (principal); Z01.84 Encounter for antibody response examination; D64.9 Anemia, unspecified; Z13.21 Encounter for screening for nutritional disorder
CPT/HCPCS: 36415; 82306; 82607; 82728; 82746; 83540; 83735; 86617; 86618